=== PATIENT | female | born 1970 | race Caucasian/White ===

== ENCOUNTER 2017-12-02 05:41 | Day surgery (SDC) | payer MEDICAID ==
[2017-12-02] MEDS ORDERED: Dextrose 5%-Lactated Ringers 1,000 ML IV SCH (06:30)
[2017-12-02] MEDS ORDERED: Midazolam 1 MG/ML 2 ML SDV ONE (07:05)
[2017-12-02] MEDS ORDERED: fentaNYL 100 MCG/2 ML SDV ONE (07:05)
[2017-12-02] MEDS ORDERED: Propofol 200 MG/20 ML SDV ONE ×2 (07:05→07:59)
[2017-12-02 09:23] VITALS: BP 132/84
--- NOTE | 2017-12-09 09:12 | OR ---
DATE OF PROCEDURE: 12/02/2017 PREOPERATIVE DIAGNOSIS: Indications for screening colonoscopy (family history of colon carcinoma). POSTOPERATIVE DIAGNOSIS: Normal colonoscopic examination. OPERATIVE PROCEDURE: Flexible colonoscopy. ANESTHESIA: IV sedation. INDICATIONS FOR PROCEDURE: This is a 47-year-old presenting for a screening colonoscopy. She has a history of her mother having colon carcinoma. The plan is to proceed with flexible colonoscopy with biopsies and/or polypectomy as indicated. Potential risks including bleeding and perforation were discussed, and the patient wishes to proceed. DETAILS OF PROCEDURE: The patient was taken to the operating room and placed in a left lateral decubitus position. IV sedation was administered after which the initial digital rectal exam was performed and was unremarkable. The colonoscope was then passed into the rectum with retroflexion revealing uncomplicated hemorrhoidal columns. The scope was eventually passed to the level of the cecum. The prep was quite good with only a small amount of liquid stool present to that level. No abnormalities were noted. There were no diverticula. No areas of colitis and no polyps or other signs of neoplasia. The scope was withdrawn, the above findings reconfirmed, and the procedure concluded. The patient was taken to the recovery room in satisfactory condition. Recommendation would be to repeat the colonoscopy in 5 years given the history of her mother having a colon carcinoma. Mateus Adams MD /[id number]
== END 2017-12-02 09:15 | disposition home or self-care (01) ==
LOC: JP.SDS 05:41
PROVIDERS: ATTEND Surgery
DX: Z12.11 Encounter for screening for malignant neoplasm of colon (principal); E66.01 Morbid (severe) obesity due to excess calories; Z87.891 Personal history of nicotine dependence; Z80.0 Family history of malignant neoplasm of digestive organs; Z86.73 Personal history of transient ischemic attack (TIA), and cerebral infarction without residual deficits; Z79.82 Long term (current) use of aspirin
CPT/HCPCS: 45378; J2250; J2704; J3010; J7042

== ENCOUNTER 2018-04-10 06:54 | Day surgery (SDC) | payer MEDICAID ==
[2018-04-10] MEDS ORDERED: Glycopyrrolate 0.2 MG/ML 2 ML SDV IVPUSH ONE (07:30)
[2018-04-10] MEDS ORDERED: Dextrose 5%-Lactated Ringers 1,000 ML IV SCH (07:30)
[2018-04-10] MEDS ORDERED: Propofol 200 MG/20 ML SDV ONE (08:16)
[2018-04-10] MEDS ORDERED: fentaNYL 100 MCG/2 ML SDV ONE (08:16)
[2018-04-10] MEDS ORDERED: Midazolam 1 MG/ML 2 ML SDV ONE (08:17)
[2018-04-10 09:42] VITALS: BP 123/83
--- NOTE | 2018-04-14 07:58 | OR ---
DATE OF PROCEDURE: 04/10/2018 PREOPERATIVE DIAGNOSES: Probable recurrent gastroesophageal reflux disease. POSTOPERATIVE DIAGNOSES: 1. Recurrent hiatal hernia and active gastroesophageal reflux disease, status post previous Tamanna fundoplication. 2. Mild antral gastritis. OPERATIVE PROCEDURES: Esophagogastroduodenoscopy with: 1. Biopsies of esophagogastric junction for histologic evaluation. 2. Biopsies of antrum for CLOtest. ANESTHESIA: IV sedation. INDICATION FOR PROCEDURE: This is a 47-year-old presenting with recurrent gastroesophageal reflux disease that has been presently refractory to medical management, including over-the- counter proton pump inhibitors. She is status post previous Tamanna fundoplication. Plan is to proceed with upper GI endoscopy with biopsies as indicated. Potential risks including bleeding and perforation were discussed, and the patient wishes to proceed. DETAILS OF PROCEDURE: The patient was taken into the operating room and placed in a left lateral decubitus position. IV sedation was administered, after which the upper GI endoscope was passed orally through the length of the esophagus and into the stomach with retroflexion view of the fundus, thereafter through the pyloric channel and into the proximal duodenum. Findings included normal hypopharynx, larynx, and upper esophageal sphincter. The esophageal body was likewise unremarkable. There was some degree of hiatal hernia, as well as generalized loosening of the Tamanna fundoplication evident with some active gastroesophageal reflux disease present, consisting of some redness and friability of the distal esophageal mucosa. Within the stomach, retroflexion confirmed the laxity of the fundoplication, and the remainder of the stomach was unremarkable, other than for some mild patchy redness in the antrum. The pyloric channel and visualized portions of the duodenum were unremarkable. At this point, biopsies were obtained from the antrum and sent for CLOtest for H. pylori. Multiple biopsies were obtained from the esophagogastric junction and sent for histologic evaluation. No bleeding from the biopsy sites was seen, and the procedure was then concluded. The patient's recurrent symptoms have become quite marked and refractory to medical management. We will, therefore, proceed with a laparoscopy, laparotomy if necessary, and redo fundoplication. She is aware that there are times when taking down the fundoplication renders that area to be not satisfactory for a redo fundoplication, in which case we will do a proximal partial gastrectomy with Ramiro-en-Y reconstruction, which would result in displacement of the gastric secretion well bellow the esophagus. This will be scheduled for next Aruna. Potential risks were reviewed with the patient and the preoperative dietary counseling will be obtained postprocedure. Mateus Adams MD /[id number]
== END 2018-04-10 10:34 | disposition home or self-care (01) ==
LOC: JP.SDS 06:54
PROVIDERS: ATTEND Surgery
DX: K21.9 Gastro-esophageal reflux disease without esophagitis (principal); K29.70 Gastritis, unspecified, without bleeding; K44.9 Diaphragmatic hernia without obstruction or gangrene; Z98.890 Other specified postprocedural states
CPT/HCPCS: 36415; 43239; 80053; 82525; 82607; 82746; 83735; 84100; 84425; 84443; 84590; 84630; 85025; 86850; 86900; 86901; 87081; 88305; J2250; J2704; J3010; J3490; J7042

== ENCOUNTER 2018-05-07 07:15 | Inpatient (IN) | payer MEDICAID ==
[2018-05-07] MEDS ORDERED: cefOXitin 2 GM Vial ONE (07:22)
[2018-05-07] MEDS ORDERED: Propofol 200 MG/20 ML SDV ONE (09:12)
[2018-05-07] MEDS ORDERED: Glycopyrrolate 0.2 MG/ML 5 ML MDV ONE (09:12)
[2018-05-07] MEDS ORDERED: Neostigmine Methylsulfate 1 MG/ML 5 ML Syringe ONE (09:12)
[2018-05-07] MEDS ORDERED: Ondansetron 4 MG/2 ML SDV ONE (09:12)
[2018-05-07] MEDS ORDERED: Rocuronium 50 MG/5 ML Vial ONE ×2 (09:12→12:58)
[2018-05-07] MEDS ORDERED: Succinylcholine 200 MG/10 ML MDV ONE (09:12)
[2018-05-07] MEDS ORDERED: Dexamethasone 4 MG/ML SDV ONE (09:12)
[2018-05-07] MEDS ORDERED: Lactated Ringers 1,000 ML ONE ×2 (09:12→14:02)
[2018-05-07] MEDS ORDERED: Celecoxib 200 MG Cap PO ONE (09:30)
[2018-05-07] MEDS ORDERED: Dextrose 5%-Lactated Ringers 1,000 ML IV SCH (09:30)
[2018-05-07] MEDS ORDERED: Gabapentin 300 MG Cap PO ONE (09:30)
[2018-05-07] MEDS ORDERED: Scopolamine 1.5 MG Transdermal Patch TOP SCH (09:30)
[2018-05-07] MEDS ORDERED: Acetaminophen 500 MG Tab PO ONE (09:30)
[2018-05-07] MEDS ORDERED: Ketamine 500 MG/5 ML MDV IV SCH (10:45)
[2018-05-07] MEDS ORDERED: Lidocaine 2% 100 MG/5 ML Syringe IVPUSH SCH (10:45)
[2018-05-07] MEDS ORDERED: Ropivacaine 60 ML, Dexamethasone 8 MG, EPINEPHrine 0.4 MG, Sodium Chloride 0.9% 17.6 ML NERVRT SCH ×4 (10:45)
[2018-05-07] MEDS ORDERED: Ketamine 50 MG in Sodium Chloride 0.9% 49.5 ML IV SCH (10:45)
[2018-05-07] MEDS: cefOXitin 2 GM in Sodium Chloride 0.9% 50 ML IV ONE ×2 (11:34→16:04)
[2018-05-07 11:54] LABS: HEMOGLOBIN A1C 5.3 % (4.5-6.2)
[2018-05-07] MEDS ORDERED: fentaNYL 100 MCG/2 ML SDV ONE (14:53)
[2018-05-07] MEDS ORDERED: Insulin Lispro 100 Unit/ML 3 ML KwikPen SUBCUT ONE (15:15)
[2018-05-07] MEDS: Lidocaine 0.4%/D5W 2 GM/500 ML BAG IV SCH (16:05)
[2018-05-07] MEDS ORDERED: Insulin Lispro 100 Unit/ML 3 ML KwikPen SUBCUT PRN (16:21)
[2018-05-07] MEDS ORDERED: Labetalol 20 MG/4 ML Syringe IVPUSH PRN (16:21)
[2018-05-07] MEDS ORDERED: diphenhydrAMINE 50 MG/ML SDV IVPUSH PRN (16:21)
[2018-05-07] MEDS ORDERED: Ondansetron 4 MG/2 ML SDV IVPUSH PRN (16:21)
[2018-05-07] MEDS ORDERED: hydrOXYzine HCl 100 MG/2 ML SDV IM PRN (16:21)
[2018-05-07] MEDS ORDERED: Metoclopramide 10 MG/2 ML SDV IVPUSH PRN (16:21)
[2018-05-07] MEDS ORDERED: HYDROmorphone 0.5 MG/0.5 ML Syringe IVPUSH PRN (16:21)
[2018-05-07] MEDS: Dextrose 5%-Lactated Ringers 1,000 ML IV SCH (16:44)
[2018-05-07] MEDS: cefOXitin 2 GM in Sodium Chloride 0.9% 50 ML IV SCH ×2 (17:12→22:31)
[2018-05-07] MEDS: Pantoprazole 40 MG Vial IVPUSH SCH (17:18)
[2018-05-07] MEDS ORDERED: MVI, Adult with Vitamin K 10 ML, Thiamine 200 MG, Chromium/Copper/Mang/Selen/Zn 1 ML in... IV SCH ×4 (17:30)
[2018-05-07] MEDS: Acetaminophen Soln 650 MG/20.3 ML UD Cup PO SCH ×2 (18:04→23:09)
[2018-05-07] MEDS: Heparin Sodium 5,000 Units/ML Vial SUBCUT SCH (20:51)
[2018-05-07] MEDS: Gabapentin 250 MG/5 ML Solution ML 470 ML Bottle PO SCH (20:52)
[2018-05-08] MEDS ORDERED: Iohexol 647 MG/ML 50 ML SDV PO STA (03:14)
--- NOTE | 2018-05-08 04:38 | CRLCR ---
INDICATION: Ramiro-en-Y revision TECHNIQUE: Abdomen modified upper GI COMPARISON: None FINDINGS: Bowel: Oral contrast transit across the GE junction into the gastric pouch and into the distal jejunum without evidence of extravasation. Soft tissues: No sign of free air. No sign of soft tissue mass. No suspicious calcifications. Bones: Unremarkable for age. IMPRESSION: Transit of contrast into the distal jejunum. No evidence of extravasation. Dictated by Margarito Freedman MD @ May 08 2018 5:39AM Signed by Dr. Margarito Freedman @ May 08 2018 5:51AM
[2018-05-08] MEDS: cefOXitin 2 GM in Sodium Chloride 0.9% 50 ML IV SCH ×3 (05:07→17:19)
[2018-05-08] MEDS: Acetaminophen Soln 650 MG/20.3 ML UD Cup PO SCH ×3 (05:07→17:24)
[2018-05-08] MEDS: Dextrose 5%-Lactated Ringers 1,000 ML IV SCH (05:07)
[2018-05-08] MEDS: Heparin Sodium 5,000 Units/ML Vial SUBCUT SCH ×2 (08:08→20:00)
[2018-05-08] MEDS: Celecoxib 200 MG Cap PO SCH (08:09)
[2018-05-08] MEDS: Aspirin 81 MG Tab.Chew PO SCH (08:09)
[2018-05-08] MEDS: SCOPOLAMINE PATCH CHECK TOP SCH (08:10)
[2018-05-08] MEDS: Gabapentin 250 MG/5 ML Solution ML 470 ML Bottle PO SCH ×3 (08:13→20:03)
[2018-05-08] MEDS ORDERED: Ondansetron 4 MG Tab.DIS PO PRN (08:14)
[2018-05-08] MEDS ORDERED: Dextrose 5%-Lactated Ringers 1,000 ML IV SCH (08:15)
[2018-05-08] MEDS: Lidocaine 0.4%/D5W 2 GM/500 ML BAG IV SCH (11:04)
--- NOTE | 2018-05-08 11:43 | PN ---
DATE OF SERVICE: 05/08/2018 SUBJECTIVE: Augustina is postoperative day one. Her pain has been managed. Blood sugars were 235 and 173. Upper GI this morning was normal. Remainder of review of systems negative for any pertinent positives and negatives. Oral intake was 400. Urine output 2200. DEEPTI put out 95 mL of a light red drainage. OBJECTIVE: GENERAL: Augustina Duncan is a 47-year-old female. VITAL SIGNS: TPR is 98.1, 97, 18, blood pressure is 149/79. HEENT: Negative. NECK: Supple. HEART: Regular rate and rhythm. LUNGS: Clear. ABDOMEN: Dressings are dry and intact. Abdominal binder is on. DEEPTI drain intact. EXTREMITIES: Without peripheral edema. SKIN: Without rash. ASSESSMENT: Diagnostic laparoscopy with: 1. Proximal gastrectomy with Ramiro-en-Y gastrojejunostomy. 2. Repair of recurrent paraesophageal hernia with mesh. 3. Liver biopsy for recurrent gastroesophageal reflux disease with proximal stomach unsuitable for redo of Tamanna fundoplication, recurrent paraesophageal hernia and elevated liver function tests. Date of surgery, 05/07/2018. Surgeon, Mateus Adams MD. PLAN: 1. Decrease IV to 100 mL per hour. 2. Step 2 gastric bypass diet without cereal. 3. Zofran ODT 4 mg q.4 hours p.r.n. nausea. 4. Dressing off. 5. May shower. 6. Good pulmonary toilet. 7. Communication order written for the patient to have one med cup per 30 mL of water every 20 minutes or three per hour and record at bedside. The patient will be going home on a step 2 diet without cereal for 3 weeks. 8. We will evaluate p.r.n. or in a.m. Yesenia Sood PA-C /[id number]
[2018-05-08] MEDS: MVI, Adult with Vitamin K 10 ML, Thiamine 200 MG, Chromium/Copper/Mang/Selen/Zn 1 ML in... IV SCH ×4 (17:19)
[2018-05-08] MEDS: Pantoprazole 40 MG Vial IVPUSH SCH (17:24)
[2018-05-09] MEDS: Acetaminophen Soln 650 MG/20.3 ML UD Cup PO SCH ×5 (00:01→23:59)
[2018-05-09] MEDS: Aspirin 81 MG Tab.Chew PO SCH (08:09)
[2018-05-09] MEDS: Heparin Sodium 5,000 Units/ML Vial SUBCUT SCH ×2 (08:09→21:43)
[2018-05-09] MEDS: Celecoxib 200 MG Cap PO SCH (08:09)
[2018-05-09] MEDS: SCOPOLAMINE PATCH CHECK TOP SCH (08:10)
[2018-05-09] MEDS: Gabapentin 250 MG/5 ML Solution ML 470 ML Bottle PO SCH ×3 (08:15→21:43)
[2018-05-09] MEDS ORDERED: Cyanocobalamin (Vitamin B12) 1,000 MCG/ML SDV IM ONE (09:00)
[2018-05-09] MEDS ORDERED: Magnesium Hydroxide 400 MG/5 ML Susp 30 ML Cup PO PRN (09:09)
[2018-05-09] MEDS ORDERED: Magnesium Hydroxide 400 MG/5 ML Susp 30 ML Cup PO ONE (10:00)
[2018-05-09] MEDS ORDERED: Pantoprazole 40 MG Delayed-Release Granules 1 Packet PO SCH (16:00)
[2018-05-09] MEDS: MVI, Adult with Vitamin K 10 ML, Thiamine 200 MG, Chromium/Copper/Mang/Selen/Zn 1 ML in... IV SCH ×4 (16:40)
[2018-05-10] MEDS: Acetaminophen Soln 650 MG/20.3 ML UD Cup PO SCH (06:22)
--- NOTE | 2018-05-10 07:31 | PN ---
DATE OF SERVICE: 05/09/2018 The patient has been afebrile with stable vital signs. No major problems noted overnight. She does have a little bit of discomfort in the lower chest as one might expect, but was regarding it to okay. She was encouraged not to take anything solid due to the relatively difficult anastomosis at the esophagojejunostomy. Otherwise, we will maximize activity and work with pulmonary toilet. She may be okay for discharge home tomorrow if at that point she is able to be transported home due to the impending weather. Mateus Adams MD /[id number]
[2018-05-10 07:44] VITALS: BP 126/67
[2018-05-10] MEDS: Heparin Sodium 5,000 Units/ML Vial SUBCUT SCH (07:47)
[2018-05-10] MEDS: Celecoxib 200 MG Cap PO SCH (07:47)
[2018-05-10] MEDS: Aspirin 81 MG Tab.Chew PO SCH (08:44)
[2018-05-10] MEDS: Gabapentin 250 MG/5 ML Solution ML 470 ML Bottle PO SCH (08:44)
--- NOTE | 2018-05-11 14:02 | DISCH ---
FINAL DIAGNOSES: 1. Recurrent gastroesophageal reflux disease with proximal stomach and distal esophagus unsuitable for redo Tamanna fundoplication. 2. Recurrent paraesophageal diaphragmatic hernia. 3. Elevated liver function tests. 4. Transient elevation in blood sugars without diagnosis of type 2 diabetes mellitus. 5. Obesity with a BMI in excess of 40. OPERATIVE PROCEDURES: This was done on 05/07/2018, diagnostic laparoscopy with: 1. Esophagogastrectomy with Ramiro-en-Y esophagojejunostomy. 2. Repair of recurrent paraesophageal diaphragmatic hernia. 3. Narinder-Cut needle liver biopsy. SUMMARY: This is a 47-year-old presenting with gastroesophageal reflux disease that is refractory to medical management. At the time of diagnostic laparoscopy, on visualization and takedown of the previous Tamanna fundoplication, the distal esophagus and proximal stomach appeared to be unsuitable for redo Tamanna fundoplication due to intense scarring and areas of deserosalization after dissection. Given this, the backup procedure, that being esophagogastrectomy with esophagojejunostomy was undertaken with a Ramiro-en-Y type reconstruction, which should help alleviate the problems with the reflux. She also had a recurrent paraesophageal diaphragmatic hernia, which was repaired. She did have elevated liver function tests preoperatively, and given this, Narinder-Cut needle biopsies were obtained from the left lobe of the liver. Postoperatively, no major problems were noted. Her esophagojejunostomy was somewhat tenuous in terms of there being quite a bit of inflammation in that area, as well as the small bowel being somewhat thin-walled. Given this, we will keep her on a liquid diet for 3 weeks postoperatively, and she will be following up with Yesenia Sood at [facility] this coming , 05/14/2018. Medications on discharge will include continuation of the aspirin 81 mg a day, Tylenol 650 mg q.6 hours p.r.n. pain, and Celebrex 200 mg p.o. daily x3 weeks.
--- NOTE | 2018-05-13 15:30 | OR ---
DATE OF PROCEDURE: 05/07/2018 PREOPERATIVE DIAGNOSES: 1. Recurrent gastroesophageal reflux disease, status post previous Tamanna fundoplication. 2. Elevated liver function tests. POSTOPERATIVE DIAGNOSES: 1. Recurrent gastroesophageal reflux disease with proximal stomach and esophagogastric junction areas unsuitable for redo Tamanna fundoplication. 2. Recurrent paraesophageal diaphragmatic hernia. 3. Elevated liver function tests. OPERATIVE PROCEDURES: Diagnostic laparoscopy with lysis of adhesions: 1. Esophagogastrectomy with Ramiro-en-Y esophagojejunostomy (28956). 2. Repair of recurrent paraesophageal diaphragmatic hernia (73878). 3. Narinder-Cut needle liver biopsy (21270). ANESTHESIA: General. ASSISTANTS: Yesenia Sood PA-C; and BRENTON García. INDICATION FOR PROCEDURE: This is a 47-year-old presenting with symptomatic recurrent gastroesophageal reflux disease that has presently become refractory to medical management. She is status post previous Tamanna fundoplication. Recent endoscopy showed ongoing inflammation and loosening of the fundoplication, although it still is grossly present. The plan is to proceed with diagnostic laparoscopy and takedown of previous Tamanna fundoplication and proceed with a redo Tamanna fundoplication. She is aware that there are certain times wherein this situation results in the stomach and esophagogastric junction area not being suitable for Tamanna fundoplication, due to extensive scarring and deserosalization, and we would then proceed with a resectional procedure, either proximal gastrectomy or esophagogastrectomy with Ramiro-en-Y small bowel reconstruction, which would also satisfactorily control the reflux symptoms. She also has some chronically elevated liver function tests, and liver biopsies will be obtained to clarify the underlying pathology. Potential risks of the procedure including bleeding, infection, leaks from various GI tract closures, problems with bowel obstruction over time, as well as possibility of cardiopulmonary, septic, or hemorrhagic complications leading to were discussed, and the patient wishes to proceed. PROCEDURE DETAILS: The patient was taken to the operating room and placed in a supine position. After general endotracheal anesthesia was induced, she was converted to a lithotomy position. Diaz catheter was inserted, and the abdomen prepped and draped. At 15 cm inferior and 5 cm left of xiphoid process, transverse incision was made and the peritoneal cavity was entered under direct vision with an Optiview trocar and inflated to 15 mmHg pressure with CO2. Laparoscope was re-inserted. No underlying trocar insertion site injuries were seen. Following this, bilateral subcostal transversus abdominis plane blocks were placed under direct vision, and 5 additional trocars were placed across the upper and mid abdomen. Initially, the liver was examined and found to be quite enlarged and fatty infiltrated appearance. Narinder-Cut needle biopsy was obtained from the left lobe of the liver. Minimal bleeding from the biopsy sites was controlled with electrocautery. At this point, the liver was retracted upward, and the dissection around the previous fundoplication was undertaken, initially dividing the adhesions between the liver and the fundoplication. As the fundoplication was begun to be dissected downward, there was noted to be very intense scar formation, along with recurrence of paraesophageal diaphragmatic hernia. When the Tamanna fundoplication was largely taken down, it became evident that this area would not be suitable for redo Tamanna fundoplication, due to obvious decrease of blood supply and deserosalization. The esophagus itself was also involved in this process. Therefore, the proximal plane of resection was in the distal esophagus. The esophagus was encircled in a plane just above the esophagogastric junction, where the fundoplication was densely scarred, with pledgets around that area. Once this was encircled, this was divided with NAVEED black loads. The stomach below this plane was then resected with a combination of black and purple loads, and the esophagogastric resection specimen was subsequently delivered from the field. At this point, the patient was noted to have a paraesophageal diaphragmatic hernia present posteriorly. This contained some fundus of the stomach prolapsing posteriorly behind the portion of the esophagus. This surface area had been reduced during the course of the esophagogastric resection. This was then repaired posteriorly with 0 Ethibond sutures, reinforced with PTFE pledgets. Attention was then taken to the small bowel. The small bowel was identified at the ligament of Treitz and then traced down 100 cm distal to that point, where it was divided transversely with the same stapler. Small bowel was then traced out 150 cm further distal, where the wadi-tv-iltb enteroenterostomy was accomplished with internal firing of the Endo- NAVEED 60 mm stapler. Common opening was then closed transversely with the same stapler and angles anastomosed and mesenteric defect approximated with some 0 Ethibond stitch, along with fibrin sealant. The omentum at that point was then divided, and the Ramiro limb was then brought up to the divided esophagus with minimal tension. The anvil of a 25 mm EEA stapler was then connected to the [place] sump type tube and was brought down through the mouth and taken out through a small opening in the end of the esophagus. The divided end of the Ramiro limb was then opened and main body of EEA stapler passed several centimeters into the lumen of the small bowel, brought up the anvil and united with it, thus creating the esophagojejunostomy. Upon removal of the stapler, double donuts of mucosa were noted within it. The esophagojejunostomy was then reinforced with seromuscular stitches of 3-0 Vicryl stitch, along with fibrin sealant. Leak test was accomplished with injection of 120 mL of air in the gastric tube, which was placed down into the area of the anastomosis, and submerged in antibiotic-containing saline solution. No leaks were identified. A Martir- Velez drain was then placed through the left lateral trocar site and positioned adjacent to the esophagojejunostomy and from there up into the splenic fossa. The trocars were removed, peritoneal cavity deflated, incisions were closed with 4-0 Vicryl skin stitch, and dressing applied. The patient was taken to the recovery room in satisfactory condition. There were no evident complications. Physician assistant construction superintendent, Yesenia Sood, played an essential role in assisting in this case, helping to position the patient, retract structures as needed, as well as suturing and cutting sutures as indicated. Her presence improved patient safety and decreased operative time. Mateus Adams MD /[id number]
== END 2018-05-10 10:30 | disposition home or self-care (01) | DRG 327 ==
LOC: EDSTATUS 07:15 → JP.SDSSCHI 08:45 → JP.SDS 08:45 → JP.2SS 15:00
PROVIDERS: ADMIT Surgery; ATTEND Surgery
PROC: 0DB64ZZ Excision of Stomach, Percutaneous Endoscopic Approach (ICD-10-PCS; principal; 2018-05-07)
PROC: 0DQ44ZZ Repair Esophagogastric Junction, Percutaneous Endoscopic Approach (ICD-10-PCS; principal; 2018-05-07)
PROC: 0D1 Gastrointestinal System, Bypass (ICD-10-PCS; principal; 2018-05-07)
PROC: 0FB24ZX Excision of Left Lobe Liver, Percutaneous Endoscopic Approach, Diagnostic (ICD-10-PCS; principal; 2018-05-07)
PROC: 0BQT4ZZ Repair Diaphragm, Percutaneous Endoscopic Approach (ICD-10-PCS; principal; 2018-05-07)
PROC: 0DB34ZZ Excision of Lower Esophagus, Percutaneous Endoscopic Approach (ICD-10-PCS; principal; 2018-05-07)
DX: K21.9 Gastro-esophageal reflux disease without esophagitis (principal); Z68.41 Body mass index [BMI] 40.0-44.9, adult; G45.8 Other transient cerebral ischemic attacks and related syndromes; K44.9 Diaphragmatic hernia without obstruction or gangrene; R79.89 Other specified abnormal findings of blood chemistry; E66.9 Obesity, unspecified; R06.83 Snoring; K76.0 Fatty (change of) liver, not elsewhere classified; I34.0 Nonrheumatic mitral (valve) insufficiency; I36.1 Nonrheumatic tricuspid (valve) insufficiency; I37.1 Nonrheumatic pulmonary valve insufficiency; Z79.82 Long term (current) use of aspirin; Z88.8 Allergy status to other drugs, medicaments and biological substances; Z90.710 Acquired absence of both cervix and uterus; Z86.718 Personal history of other venous thrombosis and embolism; Z91.19 Patient's noncompliance with other medical treatment and regimen; Z87.891 Personal history of nicotine dependence; Z90.3 Acquired absence of stomach [part of]; Z98.890 Other specified postprocedural states; Z90.79 Acquired absence of other genital organ(s); Z90.722 Acquired absence of ovaries, bilateral
CPT/HCPCS: 36415; 74240; 80053; 82962; 83036; 83735; 84100; 85027; 86850; 86900; 86901; 88305; 88307; 88313; A9270-GY; C9113; J0171; J0330; J0694; J1100; J1170; J1644; J1815; J2001; J2405; J2704; J2710; J2795; J3010; J3411; J3420; J3490; J7042; J7050; J7120; Q9967

== ENCOUNTER 2018-06-10 12:59 | Outpatient (CLI) | payer MEDICAID ==
[2018-06-10] MEDS ORDERED: Lactated Ringers 1,000 ML IV ONE (13:15)
[2018-06-10] MEDS ORDERED: Ondansetron 4 MG/2 ML SDV IVPUSH ONE (13:15)
[2018-06-10 13:21] VITALS: BP 145/78; PULSE 75
[2018-06-10] MEDS ORDERED: MVI, Adult with Vitamin K 10 ML, Magnesium Sulfate 2 GM, Folic Acid 1 MG, Thiamine 100 ... IV ONE ×5 (14:00)
== END 2018-06-10 16:20 | disposition home or self-care (01) ==
LOC: JP.ACU 12:59
PROVIDERS: ATTEND Physician Assistant Medical
DX: E86.0 Dehydration (principal)
CPT/HCPCS: J3411; J3475; J7120; 96365; 96366; J3490

== ENCOUNTER 2018-06-12 07:41 | Day surgery (SDC) | payer MEDICAID ==
[2018-06-12] MEDS ORDERED: Lactated Ringers 1,000 ML IV SCH (08:15)
[2018-06-12] MEDS ORDERED: Propofol 200 MG/20 ML SDV ONE (08:19)
[2018-06-12] MEDS ORDERED: Midazolam 1 MG/ML 2 ML SDV ONE (08:20)
[2018-06-12] MEDS ORDERED: fentaNYL 100 MCG/2 ML SDV ONE (08:20)
[2018-06-12] MEDS ORDERED: Cyanocobalamin (Vitamin B12) 1,000 MCG/ML SDV IM ONE (08:30)
[2018-06-12] MEDS ORDERED: Glycopyrrolate 0.2 MG/ML 2 ML SDV IVPUSH ONE (09:00)
[2018-06-12] MEDS ORDERED: MVI, Adult with Vitamin K 10 ML, Thiamine 200 MG, Chromium/Copper/Mang/Selen/Zn 1 ML in... IV SCH ×4 (09:45)
[2018-06-12] MEDS ORDERED: HYDROmorphone 1 MG/ML Syringe IVPUSH ONE (10:10)
[2018-06-12] MEDS ORDERED: HYDROmorphone 1 MG/ML Syringe ONE (10:16)
[2018-06-12 12:31] VITALS: BP 125/79
--- NOTE | 2018-06-17 16:02 | OR ---
DATE OF PROCEDURE: 06/12/2018 PREOPERATIVE DIAGNOSIS: Stricture of esophagojejunostomy. POSTOPERATIVE DIAGNOSIS: Stricture of esophagojejunostomy. PROCEDURE: Upper GI endoscopy with dilation of esophagojejunostomy (94016). ANESTHESIA: IV sedation. INDICATIONS FOR PROCEDURE: This is a 47-year-old status post esophagogastrectomy as a salvage procedure for recurrent reflux disease following previous Tamanna fundoplication. She presents now with symptoms of stricturing at her esophagojejunostomy. Plan is to proceed with upper GI endoscopy with dilation as indicated. Potential risks including bleeding and perforation were discussed, and the patient wishes to proceed. DETAILS OF PROCEDURE: The patient was taken to the operating room, placed in a left lateral decubitus position. IV sedation was administered after which the upper GI endoscope was passed orally through the length of the esophagus and into the area of the esophagojejunostomy. No retained food or fluid was noted. The patient was noted to have a moderately tight stricture at that level. Using fluoroscopic surveillance, a 30-Serbian gastrointestinal catheter was then centered across the anastomosis and inflated and held in position for 1 minute, after which the balloon catheter was deflated and withdrawn. The scope could easily then be passed through the anastomosis. No complications were evident. The patient was taken to the recovery room in satisfactory condition. Mateus Adams MD /[id number]
== END 2018-06-12 13:15 | disposition home or self-care (01) ==
LOC: JP.SDS 07:41
PROVIDERS: ATTEND Surgery
DX: K95.89 Other complications of other bariatric procedure (principal); E66.01 Morbid (severe) obesity due to excess calories; Z68.36 Body mass index [BMI] 36.0-36.9, adult
CPT/HCPCS: J1170; J2250; J2704; J3010; J3420; J3490; J7120

== ENCOUNTER 2018-06-25 08:57 | Day surgery (SDC) | payer MEDICAID ==
[2018-06-25] MEDS ORDERED: Lidocaine 1% 2 ML ONE ×2 (09:31)
[2018-06-25] MEDS ORDERED: Cyanocobalamin (Vitamin B12) 1,000 MCG/ML SDV IM ONE (09:42)
[2018-06-25] MEDS ORDERED: Lactated Ringers 1,000 ML IV ONE ×2 (09:43→09:46)
[2018-06-25] MEDS ORDERED: Propofol 200 MG/20 ML SDV ONE (09:56)
[2018-06-25] MEDS ORDERED: Midazolam 1 MG/ML 2 ML SDV ONE (09:57)
[2018-06-25] MEDS ORDERED: fentaNYL 100 MCG/2 ML SDV ONE (09:57)
[2018-06-25] MEDS ORDERED: MVI, Adult with Vitamin K 10 ML, Thiamine 200 MG, Chromium/Copper/Mang/Selen/Zn 1 ML in... IV ONE ×4 (10:30)
[2018-06-25] MEDS ORDERED: Glycopyrrolate 0.2 MG/ML 2 ML SDV IVPUSH ONE (11:30)
[2018-06-25] MEDS ORDERED: Lactated Ringers 1,000 ML IV SCH (11:30)
[2018-06-25] MEDS ORDERED: Dexamethasone 4 MG/ML SDV ONE (15:24)
[2018-06-25] MEDS ORDERED: Pantoprazole 40 MG Vial IVPUSH ONE (15:30)
[2018-06-25] MEDS ORDERED: HYDROmorphone 1 MG/ML Syringe IVPUSH ONE (16:02)
[2018-06-25 16:36] VITALS: BP 105/64
--- NOTE | 2018-06-30 10:37 | OR ---
DATE OF PROCEDURE: 06/25/2018 SURGEON: Mateus Adams MD PREOPERATIVE DIAGNOSIS: Stricture at esophagojejunostomy. POSTOPERATIVE DIAGNOSIS: Stricture and ulceration at esophagojejunostomy. OPERATIVE PROCEDURE: Upper GI endoscopy with dilation of esophagojejunostomy (01639). ANESTHESIA: IV sedation. INDICATION FOR PROCEDURE: This is a 47-year-old status post esophagogastrectomy for recurrent reflux disease. Following previous Tamanna fundoplication on 05/07/2018, she presents now with some recurrent stricturing at esophagojejunostomy. Plan is to proceed with upper GI endoscopy with dilation as indicated. Potential risks including bleeding and perforation were discussed, and the patient wishes to proceed. DETAILS OF PROCEDURE: The patient was taken to the operating room, placed in a left lateral decubitus position. IV sedation was administered, after which the upper GI endoscope was passed orally through the esophagus and into the area of the esophagojejunostomy. Moderate stricture was present. At this point, the scope was not quite being able to be pass across the anastomosis. There was also noted to be some ulceration within the area of the anastomosis covered with fibrinous exudate. Using fluoroscopic surveillance, Bard gastrointestinal balloon catheter was centered across the anastomosis and inflated to 30- German size. This was held in position for one minute, after which the balloon catheter was deflated and withdrawn. The scope was easily passed through the anastomosis. No complications were noted, and the patient tolerated the procedure well. For the ulceration, the patient will be started on Protonix 40 mg daily. We will have her follow up with Yesenia Sood in roughly 3 weeks. She is instructed to call with recurrence at symptoms. Mateus Adams MD /[id number]
== END 2018-06-25 16:59 | disposition home or self-care (01) ==
LOC: JP.SDS 08:57
PROVIDERS: ATTEND Surgery
DX: K28.9 Gastrojejunal ulcer, unspecified as acute or chronic, without hemorrhage or perforation (principal); K22.2 Esophageal obstruction; Z86.73 Personal history of transient ischemic attack (TIA), and cerebral infarction without residual deficits
CPT/HCPCS: C9113; J1100; J1170; J2001; J2250; J2704; J3010; J3411; J3420; J3490; J7120

== ENCOUNTER 2018-07-14 08:01 | Day surgery (SDC) | payer MEDICAID ==
[2018-07-14] MEDS ORDERED: Midazolam 1 MG/ML 2 ML SDV ONE (08:29)
[2018-07-14] MEDS ORDERED: fentaNYL 100 MCG/2 ML SDV ONE (08:29)
[2018-07-14] MEDS ORDERED: Propofol 200 MG/20 ML SDV ONE (08:29)
[2018-07-14] MEDS ORDERED: Lactated Ringers 1,000 ML IV ONE (08:30)
[2018-07-14] MEDS ORDERED: Cyanocobalamin (Vitamin B12) 1,000 MCG/ML SDV IM ONE (08:30)
[2018-07-14] MEDS ORDERED: Glycopyrrolate 0.2 MG/ML 2 ML SDV IVPUSH ONE (08:30)
[2018-07-14] MEDS ORDERED: Ondansetron 4 MG/2 ML SDV ONE ×2 (08:31→10:33)
[2018-07-14] MEDS ORDERED: MVI, Adult with Vitamin K 10 ML, Thiamine 200 MG, Chromium/Copper/Mang/Selen/Zn 1 ML in... IV ONE ×4 (09:30)
[2018-07-14 11:50] VITALS: BP 100/54
--- NOTE | 2018-07-18 07:17 | OR ---
DATE OF PROCEDURE: 07/14/2018 PREOPERATIVE DIAGNOSIS: Probable stricture at esophagojejunostomy. POSTOPERATIVE DIAGNOSIS: Moderately stricture at esophagojejunostomy. OPERATIVE PROCEDURE: Upper GI endoscopy with dilation of esophagojejunostomy (83530). ANESTHESIA: IV sedation. INDICATIONS FOR PROCEDURE: The patient presents once again with symptoms suggestive of stricturing at esophagojejunostomy. Plan is to proceed with an upper GI endoscopy with dilation as indicated. Potential risks including bleeding and perforation were discussed, and the patient wishes to proceed. DETAILS OF PROCEDURE: The patient was taken to the operating room and placed in a left lateral decubitus position. IV sedation was administered, after which the upper GI endoscope was passed orally through the length of the esophagus and into the area of the esophagojejunostomy. No retained food or fluid was noted. The patient was noted to have moderate degree of stricturing of that anastomosis. At this point, there was less in the way of inflammation that had been previously seen with the area of ulceration seen earlier now healed. A Bard gastrointestinal catheter was centered across the anastomosis and inflated to 30-Azeri size. This was held in position for 1 minute, after which balloon catheter was deflated and withdrawn. Scope was then easily passed through the anastomosis. No complications were noted. Procedure was concluded with withdrawal of scope. The patient was taken to the recovery room in satisfactory condition. Mateus Adams MD /[id number]
== END 2018-07-14 11:55 | disposition home or self-care (01) ==
LOC: JP.SDS 08:01
PROVIDERS: ATTEND Surgery
DX: K95.89 Other complications of other bariatric procedure (principal); Z86.718 Personal history of other venous thrombosis and embolism
CPT/HCPCS: 43249; J2250; J2405; J2704; J3010; J3411; J3420; J3490; J7120

== ENCOUNTER 2018-07-31 07:21 | Day surgery (SDC) | payer MEDICAID ==
[2018-07-31] MEDS ORDERED: Midazolam 1 MG/ML 2 ML SDV ONE (07:48)
[2018-07-31] MEDS ORDERED: fentaNYL 100 MCG/2 ML SDV ONE (07:48)
[2018-07-31] MEDS ORDERED: Propofol 200 MG/20 ML SDV ONE (07:48)
[2018-07-31] MEDS ORDERED: Cyanocobalamin (Vitamin B12) 1,000 MCG/ML SDV IM ONE ×2 (08:00→09:00)
[2018-07-31] MEDS ORDERED: Glycopyrrolate 0.2 MG/ML 2 ML SDV IVPUSH ONE ×2 (08:00→09:00)
[2018-07-31] MEDS ORDERED: Lactated Ringers 1,000 ML IV ONE ×2 (08:00)
[2018-07-31] MEDS ORDERED: MVI, Adult with Vitamin K 10 ML, Thiamine 200 MG, Chromium/Copper/Mang/Selen/Zn 1 ML in... IV ONE ×8 (09:00→09:30)
[2018-07-31] MEDS ORDERED: Dexamethasone 4 MG/ML SDV ONE (09:10)
[2018-07-31] MEDS ORDERED: Ondansetron 4 MG/2 ML SDV ONE (09:10)
[2018-07-31 10:20] VITALS: BP 106/69
[2018-07-31] MEDS ORDERED: Lidocaine 2% 60 ML, Alum Hydrox/Mag Hydrox/Simeth 360 ML PO PRN ×2 (10:49)
--- NOTE | 2018-08-03 14:19 | OR ---
DATE OF PROCEDURE: 07/31/2018 PREOPERATIVE DIAGNOSIS: Probable stricture, esophagojejunostomy. POSTOPERATIVE DIAGNOSES: 1. Stricture, esophagojejunostomy. 2. Foreign body (retained food) at esophagojejunostomy. PROCEDURE PERFORMED: Upper gastrointestinal endoscopy with: 1. Dilation of esophagojejunostomy (12912). 2. Removal of foreign body located at esophagojejunostomy (49667). ANESTHESIA: IV sedation. FORESTRY TREE PRUNER: Ko Cooley MS-3. INDICATION FOR PROCEDURE: The patient is status post esophagogastrectomy as a rescue procedure for gastroesophageal reflux disease. She has been having some recurrent strictures. The plan is to proceed with an upper GI endoscopy with dilation at this time as she is presenting with some recurrent symptoms of stricturing. Potential risks including bleeding and perforation were discussed, and the patient wishes to proceed. DETAILS OF PROCEDURE: The patient was taken to the operating room and placed in the left lateral decubitus position. IV sedation was administered, after which the upper GI endoscope was passed orally through the length of the esophagus and into the area of the esophagogastric anastomosis. At this level, there was some retained food which could be acting somewhat as a there was a moderate degree of stricturing with some granulation tissue noted at the anastomosis as well. Initially, a Bard gastrointestinal balloon catheter was then centered across the anastomosis and inflated to 36-Irish. This was held in position for one minute, after which the balloon and catheter were deflated and withdrawn. Good dilation was confirmed without evident complications. The retained food was still present above this. It appeared to be probably somewhat larger than the current anastomotic lumen. Given this, it was subsequently retrieved with an endoscopic basket and removed along with the gastroscope. At the conclusion of the procedure, there were no evident complications. The patient received some Decadron prior to the initiation of the procedure today, and we will give her a Medrol Dosepak starting tomorrow and see if some course of steroids may be helpful with regard to delaying the recurrence of the stricturing. Otherwise, the patient had been complaining of some burning postoperatively and was given a bottle of 2 ounces of Maalox with 12 ounces of Mylanta, could be taken p.r.n. for that symptom. Otherwise, she will be following with Yesenia Sood in approximately 2 weeks. Mateus Adams MD /[id number]
== END 2018-07-31 11:13 | disposition home or self-care (01) ==
LOC: JP.SDS 07:21
PROVIDERS: ATTEND Surgery
DX: K91.89 Other postprocedural complications and disorders of digestive system (principal); T18.128A Food in esophagus causing other injury, initial encounter; Z88.8 Allergy status to other drugs, medicaments and biological substances
CPT/HCPCS: 43233; 43247; A9270; J1100; J2250; J2405; J2704; J3010; J3411; J3420; J3490; J7120

== ENCOUNTER 2018-08-25 05:26 | Day surgery (SDC) | payer MEDICAID ==
[2018-08-25] MEDS ORDERED: Lactated Ringers 1,000 ML IV ONE (06:00)
[2018-08-25] MEDS ORDERED: MVI, Adult with Vitamin K 10 ML, Thiamine 200 MG, Chromium/Copper/Mang/Selen/Zn 1 ML in... IV ONE ×4 (06:00)
[2018-08-25] MEDS ORDERED: Cyanocobalamin (Vitamin B12) 1,000 MCG/ML SDV IM ONE (06:00)
[2018-08-25] MEDS ORDERED: Glycopyrrolate 0.2 MG/ML 2 ML SDV IVPUSH ONE (06:00)
[2018-08-25] MEDS ORDERED: fentaNYL 100 MCG/2 ML SDV ONE (06:48)
[2018-08-25] MEDS ORDERED: Propofol 200 MG/20 ML SDV ONE (06:48)
[2018-08-25] MEDS ORDERED: Midazolam 1 MG/ML 2 ML SDV ONE (06:48)
[2018-08-25 09:17] VITALS: BP 117/69
--- NOTE | 2018-08-25 13:25 | OR ---
DATE OF PROCEDURE: 08/25/2018 PREOPERATIVE DIAGNOSIS: Probable stricture at the esophagojejunostomy. POSTOPERATIVE DIAGNOSIS: Moderate stricture at the esophagojejunostomy. OPERATIVE PROCEDURE: Upper gastrointestinal endoscopy with dilation of esophagojejunostomy (52570). ANESTHESIA: IV sedation. INDICATION FOR PROCEDURE: This is a 48-year-old, presenting with some recurrent stricturing at the esophagojejunostomy. Plan is to do upper GI endoscopy with dilation as indicated. Potential risks including bleeding and perforation were discussed, and the patient wishes to proceed. DETAILS OF PROCEDURE: The patient was taken to the operating room and placed in a left lateral decubitus position. IV sedation was administered, after which the upper GI endoscope was passed orally through the length of the esophagus and to the level of the esophagojejunostomy. This was 1 cm scope almost being able to be passed through the area. Initially, there was area of granulation tissue which seems to be quite reddened and friable, now regained mucosal surface on it. There was still slight bump there, but overall amount of inflammation here appeared to be quite a bit less. Bard gastrointestinal catheter was then centered across the anastomosis and inflated to 36-[place] Islander size, stage 2. This was held in position for 1 minute, after which the balloon catheter was deflated and withdrawn. The scope was then easily passed through the anastomosis. No complications were noted. The patient was taken to the recovery room in satisfactory condition. Mateus Adams MD /[id number]
== END 2018-08-25 09:19 | disposition home or self-care (01) ==
LOC: JP.SDS 05:26
PROVIDERS: ATTEND Surgery
DX: K95.89 Other complications of other bariatric procedure (principal); K21.9 Gastro-esophageal reflux disease without esophagitis; K90.9 Intestinal malabsorption, unspecified; E66.01 Morbid (severe) obesity due to excess calories; Z86.73 Personal history of transient ischemic attack (TIA), and cerebral infarction without residual deficits
CPT/HCPCS: J2250; J2704; J3010; J3411; J3420; J3490; J7120

== ENCOUNTER 2018-11-17 08:36 | Day surgery (SDC) | payer MEDICAID ==
[2018-11-17] MEDS ORDERED: Propofol 200 MG/20 ML SDV ONE (09:02)
[2018-11-17] MEDS ORDERED: fentaNYL 100 MCG/2 ML SDV ONE (09:02)
[2018-11-17] MEDS ORDERED: Midazolam 1 MG/ML 2 ML SDV ONE (09:03)
[2018-11-17] MEDS ORDERED: Lactated Ringers 1,000 ML IV SCH (09:45)
[2018-11-17] MEDS ORDERED: Cyanocobalamin (Vitamin B12) 1,000 MCG/ML SDV IM ONE (10:00)
[2018-11-17] MEDS ORDERED: Glycopyrrolate 0.2 MG/ML 2 ML SDV IVPUSH ONE (10:00)
[2018-11-17] MEDS ORDERED: MVI, Adult with Vitamin K 10 ML, Thiamine 200 MG, Chromium/Copper/Mang/Selen/Zn 1 ML in... IV ONE ×4 (10:30)
[2018-11-17] MEDS ORDERED: Ondansetron 4 MG/2 ML SDV ONE (11:20)
[2018-11-17] MEDS ORDERED: Dexamethasone 4 MG/ML SDV ONE (11:20)
[2018-11-17 12:22] VITALS: BP 101/51; PULSE 52
--- NOTE | 2018-11-20 01:28 | OR ---
DATE OF PROCEDURE: 11/17/2018 SURGEON: Mateus Adams MD PREOPERATIVE DIAGNOSIS: Probable stricture at gastrojejunostomy. POSTOPERATIVE DIAGNOSIS: Mild stricture at gastrojejunostomy. OPERATIVE PROCEDURE: Upper gastrointestinal endoscopy with dilation of gastrojejunostomy (91634). ANESTHESIA: IV sedation. INDICATION FOR PROCEDURE: This is a 48-year-old status post partial gastrectomy for reflux disease with Ramiro-en-Y gastrojejunostomy. She has had some persistent problems with stricturing. The most recent stricture dilation was in latter part of August, so these have become more infrequent. She plans to proceed with upper GI endoscopy with dilation as indicated. Potential risks including bleeding and perforation were discussed and the patient wishes to proceed. DETAILS OF PROCEDURE: The patient was taken to the operating room and placed in a left lateral decubitus position. IV sedation was administered, after which the upper GI endoscope was passed orally through the length of the esophagus and into the area of the gastrojejunostomy. The patient had only mild stricture at this point with the scope not quite being able to be passed across the anastomosis. There was minimal inflammation of mucosa involvement at this point as well. Bard gastrointestinal catheter was then centered across the anastomosis and inflated to 36-G[place] size, stage II. This was held in position for 1 minute, after which balloon catheter was deflated and withdrawn. Scope easily passed through the anastomosis. No complications were noted. The patient was taken to the recovery room in satisfactory condition. Mateus Adams MD /[id number]
== END 2018-11-17 12:54 | disposition home or self-care (01) ==
LOC: JP.SDS 08:36
PROVIDERS: ATTEND Surgery
DX: K91.89 Other postprocedural complications and disorders of digestive system (principal); Z98.0 Intestinal bypass and anastomosis status
CPT/HCPCS: 43245; J1100; J2250; J2405; J2704; J3010; J3411; J3420; J3490; J7120

== ENCOUNTER 2019-01-11 06:22 | Day surgery (SDC) | payer MEDICAID ==
[2019-01-11] MEDS ORDERED: Glycopyrrolate 0.2 MG/ML 2 ML SDV IVPUSH ONE (07:00)
[2019-01-11] MEDS ORDERED: Lactated Ringers 1,000 ML IV SCH (07:00)
[2019-01-11] MEDS ORDERED: Cyanocobalamin (Vitamin B12) 1,000 MCG/ML SDV IM ONE (07:00)
[2019-01-11] MEDS ORDERED: Propofol 200 MG/20 ML SDV ONE (07:23)
[2019-01-11] MEDS ORDERED: Midazolam 1 MG/ML 2 ML SDV ONE (07:23)
[2019-01-11] MEDS ORDERED: fentaNYL 100 MCG/2 ML SDV ONE (07:23)
[2019-01-11] MEDS ORDERED: Ondansetron 4 MG/2 ML SDV ONE (07:39)
[2019-01-11] MEDS ORDERED: Dexamethasone 4 MG/ML SDV ONE (07:39)
[2019-01-11] MEDS ORDERED: MVI, Adult with Vitamin K 10 ML, Thiamine 200 MG, Chromium/Copper/Mang/Selen/Zn 1 ML in... IV ONE ×4 (08:00)
--- NOTE | 2019-01-11 10:24 | OR ---
DATE OF PROCEDURE: 01/11/2019 SURGEON: Mateus Adams MD PREOPERATIVE DIAGNOSIS: Probable stricture at esophagojejunostomy. POSTOPERATIVE DIAGNOSIS: Mild stricture at esophagojejunostomy. OPERATIVE PROCEDURE: Upper GI endoscopy with dilation of esophagojejunostomy. ANESTHESIA: IV sedation. INDICATIONS FOR PROCEDURE: The patient is several months status post an esophagogastrectomy for recurrent reflux disease, and she has had some stricturing at her esophagojejunostomy and presents now with symptoms of this getting somewhat tighter again. The plan is to proceed with upper GI endoscopy with dilation as indicated. Potential risks were reviewed once again including bleeding and perforation, and the patient wishes to proceed. DETAILS OF PROCEDURE: The patient was taken to the operating room and placed in left lateral decubitus position. IV sedation was administered, after which the upper GI endoscope was passed orally through the length of the esophagus, into the level of esophagojejunal anastomosis. This was slightly narrowed with the 1 cm scope not quite being able to be passed through the anastomosis. A Bard gastrointestinal balloon catheter was then inflated to 36-[place]bourgish size. This was withdrawn and this was noted to have done little in the way of dilation. Given this, a 45-Lux[place]ish balloon was then centered across the anastomosis and inflated to stage I. At that point, upon deflation of the balloon, there was some visible dilation present. Scope could easily pass through the anastomosis. No complications were evident. The patient was taken to the recovery room in satisfactory condition. Mateus Adams MD /[id number]
[2019-01-11 10:30] VITALS: BP 97/60; PULSE 51
== END 2019-01-11 10:39 | disposition home or self-care (01) ==
LOC: JP.SDS 06:22
PROVIDERS: ATTEND Surgery
DX: K91.89 Other postprocedural complications and disorders of digestive system (principal); Z86.73 Personal history of transient ischemic attack (TIA), and cerebral infarction without residual deficits
CPT/HCPCS: 43233; J1100; J2250; J2405; J2704; J3010; J3411; J3420; J3490; J7120

== ENCOUNTER → 2019-05-20 | Day surgery (SDC) | payer MEDICAID ==
[~2019-05-20] MED LIST: Cyanocobalamin (Vitamin B12) 1,000 MCG/ML SDV IM ONE; Dexamethasone 4 MG/ML SDV ONE; Glycopyrrolate 0.2 MG/ML 2 ML SDV IVPUSH ONE; HYDROmorphone 1 MG/ML Syringe IV ONE; HYDROmorphone 1 MG/ML Syringe ONE; Lactated Ringers 1,000 ML IV ONE; Lidocaine 2% 60 ML, Alum Hydrox/Mag Hydrox/Simeth 360 ML PO PRN; MVI, Adult with Vitamin K 10 ML, Thiamine 200 MG, Chromium/Copper/Mang/Selen/Zn 1 ML in... IV ONE; Midazolam 1 MG/ML 2 ML SDV ONE; Propofol 200 MG/20 ML SDV ONE; fentaNYL 100 MCG/2 ML SDV ONE
[2019-05-20 13:08] VITALS: BP 102/61; PULSE 63
--- NOTE | 2019-05-24 11:00 | OR ---
DATE OF PROCEDURE: 05/20/2019 SURGEON: Mateus Adams MD PREOPERATIVE DIAGNOSIS: Postprandial epigastric and abdominal pain. POSTOPERATIVE DIAGNOSES: 1. Mild stricture at the gastrojejunostomy. 2. Bowel and pouch in Ramiro limb, suggestive of partial small-bowel obstruction. PROCEDURE PERFORMED: Upper GI endoscopy with dilation and gastrojejunostomy (52720). ANESTHESIA: IV sedation. INDICATION FOR PROCEDURE: The patient is status post a partial gastrectomy with Ramiro-en-Y gastrojejunostomy and presents with some recurrent symptoms such as possible stricturing versus possible partial small bowel obstruction. The plan is to proceed with upper GI endoscopy with dilation as indicated. Potential risks including bleeding and perforation were discussed, and the patient wishes to proceed. DETAILS OF PROCEDURE: The patient was taken to the operating room and placed in a left lateral decubitus position. IV sedation was administered, after which the upper GI endoscope was passed orally through the length of the esophagus into the gastric pouch and from there through the gastrojejunostomy and roughly 20 cm into the Ramiro limb. Findings included normal esophagus and gastric pouch. The gastrojejunostomy was perhaps slightly narrowed, but easily allowed the scope to be passed through the area. The most striking finding was quite a bit of bile within the Ramiro limb. It was creeping up into the gastric pouch, suggestive of possible more distal small-bowel obstruction. The Bard gastrointestinal catheter was centered across the gastrojejunostomy and inflated to 45- [place] size. This was held in position for 1 minute after which the balloon was deflated, and the patient had some evident dilation of the gastrojejunostomy. No complications were noted. Procedure was then concluded. Given the findings, we will plan to proceed with a CAT scan of the abdomen and pelvis tomorrow, and we will see the patient after that to determine if there is something more that needs to be done operatively for what was likely a partial small-bowel obstruction. Mateus Adams MD /[id number]
== END ==
LOC: JP.SDS 08:41
PROVIDERS: ATTEND Surgery
DX: K94.23 Gastrostomy malfunction (principal); E66.9 Obesity, unspecified; Z90.49 Acquired absence of other specified parts of digestive tract; Z98.84 Bariatric surgery status; Z68.26 Body mass index [BMI] 26.0-26.9, adult
CPT/HCPCS: A9270-GY; J1100; J1170; J2250; J2704; J3010; J3411; J3420; J3490; J7120

== ENCOUNTER 2019-05-24 07:45 | Inpatient (IN) | payer MEDICAID ==
[~2019-05-24 07:45] MED LIST changes: +Bupivacaine 0.5% 50 ML MDV ONE; -Cyanocobalamin (Vitamin B12) 1,000 MCG/ML SDV IM ONE; -Dexamethasone 4 MG/ML SDV ONE; -Glycopyrrolate 0.2 MG/ML 2 ML SDV IVPUSH ONE; -HYDROmorphone 1 MG/ML Syringe IV ONE; -HYDROmorphone 1 MG/ML Syringe ONE; -Lactated Ringers 1,000 ML IV ONE; +Lidocaine 1% with EPINEPHrine 1:100,000 50 ML MDV ONE; -Lidocaine 2% 60 ML, Alum Hydrox/Mag Hydrox/Simeth 360 ML PO PRN; -MVI, Adult with Vitamin K 10 ML, Thiamine 200 MG, Chromium/Copper/Mang/Selen/Zn 1 ML in... IV ONE; +Meropenem 500 MG SDV ONE; -Midazolam 1 MG/ML 2 ML SDV ONE; -Propofol 200 MG/20 ML SDV ONE; -fentaNYL 100 MCG/2 ML SDV ONE
[2019-05-24] MEDS ORDERED: Scopolamine 1.5 MG Transdermal Patch TOP SCH (08:00)
[2019-05-24] MEDS ORDERED: Acetaminophen 500 MG Tab PO ONE (08:00)
[2019-05-24] MEDS ORDERED: Propofol 200 MG/20 ML SDV ONE (08:08)
[2019-05-24] MEDS ORDERED: Dexamethasone 4 MG/ML SDV ONE (08:08)
[2019-05-24] MEDS ORDERED: Succinylcholine 200 MG/10 ML MDV ONE (08:08)
[2019-05-24] MEDS ORDERED: fentaNYL 250 MCG/5 ML SDV ONE ×2 (08:08→11:18)
[2019-05-24] MEDS ORDERED: Glycopyrrolate 0.2 MG/ML 5 ML MDV ONE (08:08)
[2019-05-24] MEDS ORDERED: Neostigmine Methylsulfate 1 MG/ML 5 ML Syringe ONE (08:08)
[2019-05-24] MEDS ORDERED: Ondansetron 4 MG/2 ML SDV ONE (08:08)
[2019-05-24] MEDS ORDERED: Rocuronium 50 MG/5 ML Vial ONE (08:08)
[2019-05-24] MEDS ORDERED: Dextrose 5%-Lactated Ringers 1,000 ML IV SCH (08:15)
[2019-05-24] MEDS ORDERED: cefOXitin 2 GM in Sodium Chloride 0.9% 50 ML IV ONE (09:15)
[2019-05-24] MEDS ORDERED: Ketamine 500 MG/5 ML MDV IV SCH (09:30)
[2019-05-24] MEDS ORDERED: Ketamine 50 MG in Sodium Chloride 0.9% 49.5 ML IV SCH (09:30)
--- NOTE | 2019-05-24 09:36 | PCM.HP.2 ---
H&P History of Present Illness - General Date of Service: 05/24/19 Source of Information: Patient History Limitations: Reports: No Limitations - History of Present Illness Initial Comments - Free Text/Narative: Abdominal pain associated with dysphagia, heartburn, nausea and vomiting. Onset 2 weeks ago with pain and symptoms increasing. Duration of Symptoms: Reports: Week(s): (2) Location: Reports: Abdomen (mid epigastric - radiates to left upper quadrant. ) Quality: Reports: Ache, Dull, Pressure Severity: Moderate Improves with: Reports: None Worsens with: Reports: Eating Associated Symptoms: Reports: Nausea/Vomiting, Other ([place]) - Related Data Allergies/Adverse Reactions: Allergies Allergy/AdvReac Type Severity Reaction Status Date / Time brompheniramine Allergy Rash Verified 01/11/19 06:46 phenylephrine Allergy Rash Verified 01/11/19 06:46 Home Medications: Home Meds Aspirin 325 mg PO DAILY 09/04/15 [History] Cyanocobalamin (Vitamin B-12) [Vitamin B-12] 1,000 mcg SL DAILY 06/12/18 [ History] B-Complex with Vitamin C [B-Complex with C] 1 each PO DAILY 11/16/18 [History] Calcium Citrate/Vitamin D3 [Calcium Citrate + D] 1 each PO BID 11/16/18 [History ] Multivitamin with Minerals [Multiple Vitamin] 1 tab PO BID 11/17/18 [History] Famotidine [Pepcid] 20 mg PO BID 01/07/19 [History] Viscous Lidocaine 30 ml PO ASDIRECTED PRN 05/24/19 [History] Past Medical History HEENT History: Reports: Impaired Vision Other HEENT History: wears glasses Cardiovascular History: Reports: Other (See Below) Other Cardiovascular History: PFO Respiratory History: Reports: None Gastrointestinal History: Reports: Colon Polyp, GERD, Hiatal Hernia Genitourinary History: Reports: None PROCTOLOGIST History: Reports: Musculoskeletal History: Reports: Arthritis Other Musculoskeletal History: R elbow pain Neurological History: Reports: CVA, Migraines, TIA Psychiatric History: Reports: None Endocrine/Metabolic History: Reports: Obesity/BMI 30+ Hematologic History: Reports: B12 Deficiency, Blood Transfusion(s) Immunologic History: Reports: None Oncologic (Cancer) History: Reports: None Dermatologic History: Reports: None - Infectious Disease History Infectious Disease History: Reports: Herpes - Past Surgical History HEENT Surgical History: Reports: None Cardiovascular Surgical History: Reports: Other (See Below) Other Cardiovascular Surgeries/Procedures: cribaform placed 2009. Respiratory Surgical History: Reports: None GI Surgical History: Reports: Bariatric Procedure, Cholecystectomy, Colonoscopy , EGD Other GI Surgeries/Procedures: MAY 07, 2018 [facility] Female Surgical History: Reports: Breast Biopsy, D&C, Hysterectomy, Oophorectomy Neurological Surgical History: Reports: None Musculoskeletal Surgical History: Reports: None Oncologic Surgical History: Reports: Biopsy of Breast Dermatological Surgical History: Reports: None Social & Family History - Family History Family Medical History: Noncontributory Cardiac: Reports: Heart Failure Musculoskeletal: Reports: Arthritis Neurological: Reports: Alzheimers Disease Endocrine/Metabolic: Reports: Diabetes, Type I Oncologic: Reports: Breast, Colon - Tobacco Use Smoking Status *Q: Former Smoker Years of Tobacco use: 20 Used Tobacco, but Quit: Yes Month/Year Tobacco Last Used: 2009 Second Hand Smoke Exposure: Yes - Caffeine Use Caffeine Use: Reports: None - Alcohol Use Days Per Week of Alcohol Use: 2 Number of Drinks Per Day: 5 Total Drinks Per Week: 10 - Recreational Drug Use Recreational Drug Use: No H&P Review of Systems - Review of Systems: Review Of Systems: See Below General: Reports: Fatigue HEENT: Reports: No Symptoms Pulmonary: Reports: No Symptoms Cardiovascular: Reports: No Symptoms Gastrointestinal: Reports: Abdominal Pain, Decreased Appetite, Difficulty Swallowing, Nausea, Vomiting, Other (heartburn) Genitourinary: Reports: No Symptoms Musculoskeletal: Reports: No Symptoms Skin: Reports: No Symptoms Psychiatric: Reports: No Symptoms Neurological: Reports: No Symptoms Hematologic/Lymphatic: Reports: No Symptoms Immunologic: Reports: No Symptoms Exam - Exam Exam: See Below - Vital Signs Vital Signs: Last Vital Signs Temp 97.7 F 05/24/19 08:03 Pulse 68 05/24/19 08:03 Resp 18 05/24/19 08:03 BP 102/71 05/24/19 08:03 Pulse Ox 99 05/24/19 08:03 Weight: 182 lb - Exam Quality Assessment: DVT Prophylaxis General: Alert, Oriented, Cooperative HEENT: PERRLA, Conjunctiva Clear Neck: Supple, Trachea Midline Lungs: Clear to Auscultation, Normal Respiratory Effort Cardiovascular: Regular Rate, Regular Rhythm GI/Abdominal Exam: Soft, Non-Tender (Female) Exam: Deferred Rectal (Female) Exam: Deferred Back Exam: Normal Inspection, Full Range of Motion Extremities: Normal Inspection, Normal Range of Motion, Non-Tender, No Pedal Edema Skin: Warm, Dry, Intact Neurological: Cranial Nerves Intact, Reflexes Equal Bilateral Neuro Extensive - Mental Status: Alert, Oriented x3, Normal Mood/Affect Neuro Extensive - Motor, Sensory, Reflexes: CN II-XII Intact, Normal Gait, Normal Reflexes Psychiatric: Alert, Normal Affect, Normal Mood - Patient Data Lab Results Last 24 hrs: Laboratory Results - last 24 hr 05/24/19 05/24/19 Range/Units 08:08 08:08 WBC 7.3 (4.5-11.0) K/uL RBC 4.53 (3.30-5.50) M/uL Hgb 13.7 (12.0-15.0) g/dL Hct 42.8 (36.0-48.0) % MCV 95 (80-98) fL MCH 30 (27-31) pg MCHC 32 (32-36) % Plt Count 148 L (150-400) K/uL Sodium 141 (140-148) mmol/L Potassium 3.5 L (3.6-5.2) mmol/L Chloride 105 (100-108) mmol/L Carbon Dioxide 29 (21-32) mmol/L Anion Gap 10.5 (5.0-14.0) mmol/L BUN 15 (7-18) mg/dL Creatinine 0.7 (0.6-1.0) mg/dL Est Cr Clr Drug Dosing 102.23 mL/min Estimated GFR (MDRD) > 60 (>60) Glucose 82 (74-106) mg/dL Calcium 8.6 (8.5-10.1) mg/dL Phosphorus 3.4 (2.5-4.9) mg/dL Magnesium 2.0 (1.8-2.4) mg/dL Ferritin 221 (8-388) ng/ml Total Bilirubin 0.4 (0.2-1.0) mg/dL AST 22 (15-37) U/L ALT 73 (12-78) U/L Alkaline Phosphatase 102 (46-116) U/L Total Protein 6.7 (6.4-8.2) g/dL Albumin 3.6 (3.4-5.0) g/dL Globulin 3.1 (2.3-3.5) g/dL Albumin/Globulin Ratio 1.2 (1.2-2.2) Vitamin B12 1406 H (193-986) pg/ml Folate 18.1 (8.6-58.9) ng/ml Result Diagrams: 05/24/19 08:08 05/24/19 08:08 Sepsis Event Note - Focused Exam Vital Signs: Vital Signs Temp Pulse Resp BP Pulse Ox 05/24/19 08:03 97.7 F 68 18 102/71 99 Date Exam was Performed: 05/24/19 Time Exam was Performed: 09:31 - Problem List (1) Superior mesenteric artery syndrome SNOMED Code(s): 161954435 ICD Code: K55.1 - CHRONIC VASCULAR DISORDERS OF INTESTINE Status: Acute Current Visit: Yes (2) Partial small bowel obstruction SNOMED Code(s): 125367513 ICD Code: K56.600 - PARTIAL INTESTINAL OBSTRUCTION, UNSPECIFIED TO CAUSE Status: Acute Current Visit: Yes Problem List Initiated/Reviewed/Updated: Yes Orders Last 24hrs: Active Orders 24 hr Category Date Time Status Dextrose 5%-Lactated Ringers 1,000 ml Med 05/24/19 08:15 Active IV ASDIRECTED Ketamine [Ketalar] Med 05/24/19 09:30 Active 34 mg IV ASDIRECTED Ketamine [Ketalar] 50 mg Med 05/24/19 09:30 Active Sodium Chloride 0.9% [Normal Saline] 49.5 ml IV ASDIRECTED Ropivacaine [Naropin 0.5%] 45 ml Med 05/24/19 09:30 Active dexAMETHasone [Dexamethasone] 8 mg EPINEPHrine [Adrenalin] 0.4 mg Sodium Chloride 0.9% [Normal Saline] 32.6 ml NERVRT ASDIRECTED Scopolamine [Transderm-Scop] Med 05/24/19 08:00 Active 1.5 mg TOP Q72H cefOXitin [Mefoxin] 2 gm Med 05/24/19 09:15 Active Sodium Chloride 0.9% [Normal Saline] 50 ml IV ONETIME Sequential Compression Device [OM.PC] Routine Oth 05/24/19 07:45 Ordered Medication Orders Ropivacaine 45 ml/Dexamethasone 8 mg/Epinephrine HCl 0.4 mg/ Sodium Chloride 32.6 ml 0 ml NERVRT ASDIRECTED ERICA Cefoxitin Sodium 2 gm/ Sodium (Chloride) 50 mls @ 100 mls/hr IV ONETIME ONE Stop: 05/24/19 09:44 Dextrose/Lactated Ringer's (Dextrose 5%-Lactated Ringers) 1,000 mls @ 100 mls/ hr IV ASDIRECTED [facility] Last Admin: 05/24/19 08:56 Dose: 100 mls/hr Ketamine HCl 50 mg/ Sodium (Chloride) 50 mls @ 20.27 mls/hr IV ASDIRECTED [facility] Ketamine HCl (Ketalar) 34 mg IV ASDIRECTED [facility] Scopolamine (Transderm-Scop) 1.5 mg TOP Q72H [facility] Stop: 05/26/19 10:00 Last Admin: 05/24/19 08:06 Dose: 1.5 mg Scheduled for Exploratory Laparotomy with Release of Small Bowel Obstruction and Release and Bypass of Superior Mesenteric Syndrome. - Mateus Adams MD After Preoperative Evaluation and discussion of possible risks and side effects patient wishes to proceed with surgical procedure. Patient Cleared for General Anesthesia Yesenia Joseph
[2019-05-24] MEDS ORDERED: Lactated Ringers 1,000 ML ONE (10:59)
[2019-05-24] MEDS ORDERED: diphenhydrAMINE 25 MG Cap PO PRN (12:32)
[2019-05-24] MEDS ORDERED: Ondansetron 4 MG/2 ML SDV IVPUSH PRN ×2 (12:32→13:56)
[2019-05-24] MEDS ORDERED: Naloxone 0.4 MG/ML SDV IVPUSH PRN (12:32)
[2019-05-24] MEDS ORDERED: diphenhydrAMINE 50 MG/ML SDV IVPUSH PRN ×2 (12:32→13:56)
[2019-05-24] MEDS ORDERED: Naloxone 0.4 MG/ML SDV IV PRN (12:34)
[2019-05-24] MEDS ORDERED: Metoclopramide 10 MG/2 ML SDV IVPUSH PRN (13:46)
[2019-05-24] MEDS ORDERED: Acetaminophen 500 MG Tab PO PRN (13:56)
[2019-05-24] MEDS ORDERED: Labetalol 20 MG/4 ML Syringe IVPUSH PRN (13:56)
[2019-05-24] MEDS ORDERED: hydrOXYzine HCL 100 MG/2 ML SDV IM PRN (13:56)
[2019-05-24] MEDS ORDERED: Cyclobenzaprine 10 MG Tab PO PRN (13:56)
[2019-05-24] MEDS: HYDROmorphone/Normal Saline 15 MG/30 ML PCA IV PRN (13:58)
[2019-05-24] MEDS: Dextrose 5%-Lactated Ringers 1,000 ML IV SCH (15:33)
[2019-05-24] MEDS: Acetaminophen 500 MG Tab PO SCH ×2 (15:37→23:02)
[2019-05-24] MEDS ORDERED: MVI, Adult with Vitamin K 10 ML, Thiamine 200 MG, Chromium/Copper/Mang/Selen/Zn 1 ML in... IV SCH ×4 (16:00)
[2019-05-24] MEDS ORDERED: Pantoprazole 40 MG Vial IVPUSH SCH (16:00)
[2019-05-24] MEDS: cefOXitin 2 GM in Sodium Chloride 0.9% 50 ML IV SCH ×2 (17:16→21:00)
[2019-05-24] MEDS: Heparin Sodium 5,000 Units/ML Vial SUBCUT SCH (20:51)
[2019-05-24] MEDS: Calcium Carbonate 500 MG Tab.Chew PO PRN ×2 (20:59→23:01)
[2019-05-25] MEDS: Dextrose 5%-Lactated Ringers 1,000 ML IV SCH ×3 (00:27→13:52)
[2019-05-25] MEDS: HYDROmorphone/Normal Saline 15 MG/30 ML PCA IV PRN (02:15)
[2019-05-25] MEDS: cefOXitin 2 GM in Sodium Chloride 0.9% 50 ML IV SCH ×2 (03:49→09:00)
[2019-05-25] MEDS ORDERED: Iopamidol 612 MG/ML 50 ML SDV PO STA (03:49)
[2019-05-25] MEDS ORDERED: Ondansetron 4 MG Tab.DIS PO PRN (07:16)
[2019-05-25] MEDS: Acetaminophen 500 MG Tab PO SCH ×3 (07:31→23:35)
[2019-05-25] MEDS: Heparin Sodium 5,000 Units/ML Vial SUBCUT SCH ×2 (07:32→20:17)
[2019-05-25] MEDS: Aspirin 325 MG Tab.EC PO SCH (08:49)
[2019-05-25] MEDS: Bisacodyl 5 MG Tab PO SCH ×2 (08:50→20:17)
[2019-05-25] MEDS: SCOPOLAMINE PATCH CHECK TOP SCH (08:50)
--- NOTE | 2019-05-25 09:15 | CR ---
UGI Limited HISTORY: Postbariatric surgery FINDINGS: Patient swallowed water-soluble contrast. Upright views of the abdomen show no evidence of extravasation or obstruction. IMPRESSION: Status post bariatric surgery No extravasation or obstruction seen
--- NOTE | 2019-05-25 09:33 | PN ---
DATE OF SERVICE: 05/25/2019 SUBJECTIVE: Augustina is postoperative day #1. Her upper GI was normal. Step 1 gastric bypass diet. Oral intake 420. Urine output via Diaz catheter is 1835. Pain has been controlled using the ELA TEACHER. REVIEW OF SYSTEMS: Remainder of review of systems negative for any pertinent positives and negatives. OBJECTIVE: GENERAL: Augustina Duncan is a 48-year-old female. VITAL SIGNS: TPR at 0724; 97, 54, 16, blood pressure 96/49. HEENT: Negative. NECK: Supple. HEART: Regular rate and rhythm. LUNGS: Clear. ABDOMEN: Dressings dry and intact. Abdominal binder is on. EXTREMITIES: Without peripheral edema. ASSESSMENT: Exploratory laparotomy with: 1. Small bowel resection. 2. Secondary enterostomy to restore Ramiro-en-Y small bowel anatomy. 3. Formation of Ramiro-en-Y duodenojejunostomy. 4. Release of superior duodenal bands. 5. Placement of Interceed mesh. POSTOPERATIVE DIAGNOSES: 1. Partial small-bowel obstruction at jejunojejunostomy. 2. Superior mesenteric syndrome. DATE OF SURGERY: 05/24/2019. SURGEON: Mateus Adams MD. PLAN: 1. Discontinue Diaz catheter. 2. Step 2 gastric bypass diet without cereal. 3. May shower. 4. Decrease IV of D5LR to 100 mL per hour. 5. Senna Plus 2 b.i.d. scheduled. 6. Zofran ODT 4 mg every 4 hours p.r.n. nausea. 7. Good pulmonary toilet. Use IS as directed. 8. Ambulate 6 times a day, distance and time as tolerated. 9. We will evaluate p.r.n. or in a.m. Yesenia Sood PA-C /[id number]
[2019-05-25] MEDS ORDERED: MVI, Adult with Vitamin K 10 ML, Thiamine 200 MG, Chromium/Copper/Mang/Selen/Zn 1 ML in... IV SCH ×4 (16:00)
[2019-05-25] MEDS: Pantoprazole 40 MG Tab.CR PO SCH (16:29)
[2019-05-26] MEDS: Dextrose 5%-Lactated Ringers 1,000 ML IV SCH (02:28)
[2019-05-26] MEDS: HYDROmorphone/Normal Saline 15 MG/30 ML PCA IV PRN (05:46)
[2019-05-26] MEDS: Acetaminophen 500 MG Tab PO SCH ×3 (07:27→23:21)
[2019-05-26] MEDS: Heparin Sodium 5,000 Units/ML Vial SUBCUT SCH ×2 (07:27→20:44)
--- NOTE | 2019-05-26 07:46 | PN ---
DATE OF SERVICE: 05/26/2019 SUBJECTIVE: Nisa has been up ambulating. Vital signs have been stable. Pain has been controlled. Oral intake 900. Urine output 2550. She is not passing flatus yet. Has no other questions or concerns. OBJECTIVE: GENERAL: Augustina Duncan is a pleasant 48-year-old female. VITAL SIGNS: TPR at 02:30, 98; 67; 16; blood pressure 101/58. HEENT: Negative. NECK: Supple. HEART: Regular rate and rhythm. LUNGS: Clear. ABDOMEN: Aquacel dressing is on. There is some shadowing. Abdominal binder is on. EXTREMITIES: Without peripheral edema. ASSESSMENT: Exploratory laparotomy with: 1. Small bowel resection. 2. Secondary enterostomy to restore Ramiro-en-Y small bowel anatomy. 3. Formation of Ramiro-en-Y duodenojejunostomy. 4. Release of superior duodenal bands. 5. Placement of Interceed mesh. POSTOPERATIVE DIAGNOSES: 1. Partial small bowel obstruction of the jejunojejunostomy. 2. Superior mesenteric syndrome. 3. Date of surgery: 05/24/2019. Surgeon: Mateus Adams MD. PLAN: 1. Discontinue Dilaudid STAFF NURSE MIDWIFE. 2. Discontinue telemetry and continuous pulse ox. 3. Dilaudid 2 mg 1 to 2 every 4 hours p.r.n. pain. 4. Continue to use incentive spirometer as directed and to ambulate. 5. Saline lock IV if oral intake greater than 1000. We will evaluate p.r.n. or in a.m. Yesenia Sood PA-C /[id number]
[2019-05-26] MEDS ORDERED: Cyanocobalamin (Vitamin B12) 1,000 MCG/ML SDV IM ONE (09:00)
[2019-05-26] MEDS: Aspirin 325 MG Tab.EC PO SCH (09:04)
[2019-05-26] MEDS: Bisacodyl 5 MG Tab PO SCH ×2 (09:04→20:44)
[2019-05-26] MEDS: SCOPOLAMINE PATCH CHECK TOP SCH (09:10)
[2019-05-26] MEDS: HYDROmorphone 2 MG Tab PO PRN ×3 (10:50→19:11)
[2019-05-26] MEDS: Pantoprazole 40 MG Tab.CR PO SCH (15:05)
[2019-05-27 07:20] VITALS: BP 114/60; PULSE 82
[2019-05-27] MEDS: Acetaminophen 500 MG Tab PO SCH (08:21)
[2019-05-27] MEDS: Aspirin 325 MG Tab.EC PO SCH (08:22)
[2019-05-27] MEDS: Heparin Sodium 5,000 Units/ML Vial SUBCUT SCH (08:22)
[2019-05-27] MEDS: Bisacodyl 5 MG Tab PO SCH (08:22)
--- NOTE | 2019-05-27 08:42 | DISCH ---
ADMISSION DIAGNOSES: 1. Dysphagia. 2. Heart burn. 3. Partial small bowel obstruction. 4. Superior mesenteric artery syndrome. 5. Status post partial gastrectomy. 6. B12 deficiency. 7. Vitamin D deficiency. 8. Vitamin B1 deficiency. 9. PFO. 10.History of cerebrovascular accident. 11.Transient ischemic attack. 12.Migraine headaches. DISCHARGE DIAGNOSES: Exploratory laparotomy with: 1. Small bowel resection. 2. Secondary enterostomy to restore Ramiro-en-Y small bowel anatomy. 3. Formation of Ramiro-en-Y duodenojejunostomy. 4. Release of superior duodenal bands. 5. Placement of Interceed mesh. POSTOPERATIVE DIAGNOSES: 1. Partial small bowel obstruction of the jejunojejunostomy. 2. Superior mesenteric syndrome. 3. Date of surgery: 05/24/2019. Surgeon: Mateus Adams MD. HISTORY: Augustina Duncan is a 48-year-old female with dysphagia, nausea, and vomiting. After her EGD, a CT scan was obtained and showed partial small bowel obstruction with superior mesenteric syndrome. After preoperative evaluation and discussion of possible risks and possible complications, she wished to proceed with surgical procedure. HOSPITAL COURSE: Augustina had her surgery on 05/24/2019. She had no operative complications. On postoperative day #1, her upper GI was normal. She was advanced to a step 2 gastric bypass diet without cereal. Diaz was discontinued. IV rate was decreased to 100 mL per hour and she was started on bowel stimulation. On postoperative day #2, [employer]ACTICE PSYCHIATRIC NURSE was discontinued. Oral pain medication was started. She was up, ambulating, and she did have a bowel movement. Activity was good. Vital signs were stable. Postop day #3, on 05/27/2019, able to be discharged to home with no complications. PHYSICAL EXAMINATION: GENERAL: Augustina Duncan is a 48-year-old female. VITAL SIGNS: Height is 5 feet 9.69 inches, weight is 182 pounds. TPR at 0700, 97.1; 82; 16; blood pressure 114/60. HEENT: Negative. NECK: Supple. HEART: Regular rate and rhythm. LUNGS: Clear. ABDOMEN: Abdominal binder has been on. Aquacel dressing is dry and intact. EXTREMITIES: Without peripheral edema. DISPOSITION: Discharged to home. CONDITION: Stable and improving. FOLLOWUP: Appointment with Yesenia Sood PA-C at [facility] on 06/02/2019 at 9 a.m. HOME MEDICATIONS: 1. Dilaudid 2 mg every 6 hours p.r.n. pain #28. 2. Tylenol 1000 mg oral q.8 hours p.r.n. pain. 3. Aspirin 325 mg oral daily. 4. B complex 1 daily. 5. Calcium citrate 1 twice daily. 6. Vitamin B12 1000 mcg sublingual daily. 7. Pepcid 20 mg oral twice daily. 8. Multivitamin 1 tablet twice daily. DIET: Step 2 gastric bypass with no cereal until 05/31/2019, then may advance to a step 3 diet after calling the clinic to let us know how you are doing on step 2 diet. Drink 8 to 10 glasses of water a day. ACTIVITY: No lifting greater than 10 pounds for 6 weeks. Other activity: Walk at least 6 times daily inside your home. Driving: Do not drive for 1 week and while on narcotic pain medication. Shower/bathing: May shower. DISCHARGE INSTRUCTIONS: Notify provider if any fever, increased pain, nausea, or vomiting. Keep site clean and dry. Wound incision care. Take off Aquacel dressing on 05/31/2019. Wear abdominal binder for 6 weeks and then as tolerated. SPECIAL INSTRUCTIONS: 1. Use incentive spirometer 10 times every hour while awake for 1 week. 2. Call clinic on 05/31/2019, to let us know how you are doing on step 2 gastric bypass diet before advancing to step 3.
--- NOTE | 2019-05-31 11:33 | OR ---
DATE OF PROCEDURE: 05/24/2019 SURGEON: Mateus Adams MD PREOPERATIVE DIAGNOSES: 1. Superior mesenteric artery syndrome. 2. Partial small bowel obstruction. POSTOPERATIVE DIAGNOSES: 1. Superior mesenteric artery syndrome. 2. Partial small bowel obstruction at jejunojejunostomy. OPERATIVE PROCEDURES: Exploratory laparotomy with: 1. Small bowel resection (24159). 2. Secondary enteroenterostomy to restore Ramiro-en-Y small bowel anatomy (65191). 3. Formation of Ramiro-en-Y duodenojejunostomy (88094). 4. Release of suspensory duodenal bands (30641). 5. Placement of Interceed mesh to limit recurrent adhesion formation (47547). ANESTHESIA: General. AUTOMATIC PACKER OPERATOR: Yesenia Sood PA-C. INDICATION FOR PROCEDURE: The patient presents with postprandial abdominal pain. Recent endoscopy showed the patient to have minimal stricturing at her gastrojejunostomy but had bile coming back up and through the Ramiro limb, indicative of probable partial small bowel obstruction. Subsequent CAT scan showed also findings suggestive of a superior mesenteric artery syndrome with the descending duodenum being quite dilated and there being an obvious constriction of the duodenum between the aorta and superior mesenteric artery on the CT scan. This likely would also be contributing to the patient's postprandial abdominal discomfort. The plan is to proceed with exploratory laparotomy and identification and correction of the area of partial small bowel obstruction, along with formation of the Ramiro- en-Y duodenojejunostomy to facilitate drainage of the biliopancreatic secretions in a route not requiring being passed underneath the constricting point between the aorta and superior mesenteric artery. We will also release the suspensory duodenal bands, which are likely contributing to this as well, which drops the duodenum somewhat inferiorly and out of an area which is not as tight between the superior mesenteric artery and aorta. Potential risks of the procedure including bleeding, infection, injury to underlying viscera, leaks from various possible GI tract closures were all discussed, and the patient wishes to proceed. DETAILS OF PROCEDURE: The patient was taken to the operating room and after general endotracheal anesthesia was induced, a Diaz catheter was inserted, and the abdomen prepped and draped. Upper midline incision was made from the xiphoid to the umbilicus and carried down through the full-thickness abdominal wall. Upon entering the peritoneal cavity, general exploration was undertaken. As expected, the easily visualized second portion of the duodenum was quite distended and somewhat edematous. Visualizing the remainder the small bowel, it appeared that the point of obstruction was likely at the point where the jejunojejunostomy emptied into the common limb, as this had been chronically angulated by some adhesions. Upon release of those adhesions, that appeared to be still somewhat angulated, and this was tending to force the biliopancreatic secretions from the biliopancreatic limb in a proximal direction, causing the Ramiro limb to be flooded with those secretions. At this point, decision was made to resect the jejunojejunostomy and then use what had been the proximal-most common limb as a separate Ramiro limb coming from that anastomosis up to the junction of the second and third portions of the duodenum. Initially, dissection of the second and third portions of the duodenum was initiated with combination of cautery and blunt dissection, and this then allowed dissection in the area underneath the superior mesenteric artery. The suspending duodenal bands in that area including the ligament Treitz were divided and the duodenum mobilized inferiorly after division of those bands. At this point, the 3 components of the jejunojejunostomy were divided with NAVEED margie as was the underlying mesentery and that specimen delivered from the field. GI tract continuity was initiated with anastomosis between the Ramiro limb and the divided biliopancreatic limb. This was a [id number] enteroenterostomy with internal firing of the Endo-NAVEED 60 mm stapler. The common opening was closed transversely with the same stapler. Angles of anastomosis were reinforced with some 3-0 Vicryl stitch and the mesenteric defect closed with a 2-0 silk stitch. What had been the proximal-most common limb was then mobilized up through an antecolic approach, more or less curving around the lateral aspect of the hepatic flexure of the colon. This came up easily to the area of the exposed second and third portions of the duodenum. A sobj-my-bvab anastomosis using 60 mm internal firing and the common opening closed transversely with the purple load was then accomplished, thus creating the Ramiro-en-Y duodenojejunostomy. The GI tract continuity was then fully established with a secondary anastomosis between the bowel roughly 20 cm distal to the duodenojejunostomy to the common limb more or less adjacent to the anastomosis. This would facilitate all of the bilious secretions, both those coming through the Ramiro-en-Y duodenojejunostomy and those passing through the biliopancreatic limb into direct drainage into the common limb, and did not have any sense of force proximally in terms of the biliopancreatic limb. This anastomosis was accomplished with internal firing of the Endo NAVEED 60 mm stapler. Common opening was closed transversely with NAVEED stapler as well, and the angles of anastomosis and mesenteric defect were approximated with some 3-0 Vicryl stitch and mesenteric defect with 2-0 silk stitch. This last anastomosis was close enough to first jejunostomy that it was felt that the ingested food going through the Ramiro limb would easily pass from there into the anastomosis of the biliopancreatic limb and thereafter through the secondary anastomosis. The area of dissection was then inspected. No further problems were noted. The abdomen was irrigated with meropenem-containing saline solution. Interceed mesh was then placed across the area of the incision and from there down toward the pelvis to limit recurrent adhesion formation by displacing those surfaces from the underlying viscera. Midline fascia was then approximated with a #2 Vicryl stitch, the subcutaneous tissue with 2 layers of 3-0 and 4-0 Vicryl stitch deep, and the skin with margie. Bilateral transversus abdominis plane blocks had been placed, and the incision was anesthetized with 0.5% Marcaine mixed with lidocaine and the patient taken to the recovery room in satisfactory condition. Physician assistant vice president, Yesenia Sood, played an essential role in assisting in this case, helping to position the patient, retract structures as needed, as well as cutting and tying sutures, as well as placing margie. Her presence improved patient safety and decreased operative time. Mateus Adams MD /[id number]
== END 2019-05-27 10:46 | disposition home or self-care (01) | DRG 330 ==
LOC: JP.MS 07:45 → JP.SDS 07:45 → JP.MS 07:46 → EDSTATUS 09:15 → JP.MS 12:35
PROVIDERS: ADMIT Surgery; ATTEND Surgery
PROC: 0DB80ZZ Excision of Small Intestine, Open Approach (ICD-10-PCS; principal; 2019-05-24)
PROC: 0D190ZA Bypass Duodenum to Jejunum, Open Approach (ICD-10-PCS; 2019-05-24)
PROC: 0DN90ZZ Release Duodenum, Open Approach (ICD-10-PCS; 2019-05-24)
PROC: 3E0M05Z Introduction of Adhesion Barrier into Peritoneal Cavity, Open Approach (ICD-10-PCS; 2019-05-24)
DX: K95.89 Other complications of other bariatric procedure (principal); K56.600 Partial intestinal obstruction, unspecified as to cause; K55.1 Chronic vascular disorders of intestine; Q21.1 Atrial septal defect; E55.9 Vitamin D deficiency, unspecified; E53.8 Deficiency of other specified B group vitamins; K21.9 Gastro-esophageal reflux disease without esophagitis; E66.9 Obesity, unspecified; Z86.73 Personal history of transient ischemic attack (TIA), and cerebral infarction without residual deficits; Z88.8 Allergy status to other drugs, medicaments and biological substances; Z79.82 Long term (current) use of aspirin; Z79.899 Other long term (current) drug therapy; Z87.891 Personal history of nicotine dependence
CPT/HCPCS: 36415; 74240; 74240-26; 80053; 82607; 82728; 82746; 83735; 84100; 85027; 88307; A9270-GY; C9113; J0171; J0330; J0694; J1100; J1170; J1644; J2185; J2405; J2704; J2710; J2765; J2795; J3010; J3411; J3420; J3490; J7050; J7120; J7121; Q9967

== ENCOUNTER 2020-11-05 08:50 | Emergency (ER) | payer MEDICAID ==
[2020-11-05 09:43] VITALS: BP 108/66; PULSE 89
[2020-11-05] MEDS ORDERED: Bacitracin Oint 1 GM U/D Packet TOP ONE (09:43)
[2020-11-05] MEDS ORDERED: Diphtheria,Pertussis(Acell),Tetanus Vaccine 0.5 ML Syringe IM ONE (09:46)
--- NOTE | 2020-11-05 09:49 | EDM.PDOC ---
ED HPI GENERAL MEDICAL PROBLEM - General Chief Complaint: Laceration Stated Complaint: FELL AND HIT HEAD Time Seen by Provider: 11/05/20 09:35 Source of Information: Reports: Patient, Old Records History Limitations: Reports: No Limitations - History of Present Illness INITIAL COMMENTS - FREE TEXT/NARRATIVE: 50 yo female got knocked down by a large dog about 2130h last night and hit the back of her head incurring a scalp laceration. There was no LOC, LARSEN, or nausea. Has a mildly stiff neck and a mildly sore buttocks this AM. Last tetanus was in '14. Onset: Sudden Onset Date: 11/04/20 Onset Time: 21:30 Duration: Hour(s): Location: Reports: Head Quality: Reports: Ache Severity: Mild Improves with: Reports: None Worsens with: Reports: None Context: Reports: Trauma Associated Symptoms: Reports: No Other Symptoms Treatments GAUGE AND INSTRUMENT INSPECTOR: Reports: Other (see below) (none) back of head Pain Score (Numeric/FACES): 3 - Related Data Allergies Allergy/AdvReac Type Severity Reaction Status Date / Time brompheniramine Allergy Rash Verified 11/05/20 09:05 phenylephrine Allergy Rash Verified 11/05/20 09:05 Home Meds: Home Meds L.acidoph,Paracasei, B.lactis [Probiotic] 1 tab PO DAILY 11/05/20 [History] Past Medical History HEENT History: Reports: Impaired Vision Other HEENT History: wears glasses Cardiovascular History: Reports: Other (See Below) Other Cardiovascular History: PFO Respiratory History: Reports: None Gastrointestinal History: Reports: Colon Polyp, GERD, Hiatal Hernia Genitourinary History: Reports: None [employer] History: Reports: Musculoskeletal History: Reports: Arthritis Other Musculoskeletal History: R elbow pain Neurological History: Reports: CVA, Migraines, TIA Psychiatric History: Reports: None Endocrine/Metabolic History: Reports: Obesity/BMI 30+ Hematologic History: Reports: B12 Deficiency, Blood Transfusion(s) Immunologic History: Reports: None Oncologic (Cancer) History: Reports: None Dermatologic History: Reports: None - Infectious Disease History Infectious Disease History: Reports: Herpes - Past Surgical History HEENT Surgical History: Reports: None Cardiovascular Surgical History: Reports: Other (See Below) Other Cardiovascular Surgeries/Procedures: cribaform placed 2009. Respiratory Surgical History: Reports: None GI Surgical History: Reports: Bariatric Procedure, Cholecystectomy, Colonoscopy, EGD Other GI Surgeries/Procedures: MAY 07, 2018 [facility] Female Surgical History: Reports: Breast Biopsy, D&C, Hysterectomy, Oophorectomy Other Female Surgeries/Procedures: still has one ovary Endocrine Surgical History: Reports: None Neurological Surgical History: Reports: None Musculoskeletal Surgical History: Reports: None Oncologic Surgical History: Reports: Biopsy of Breast Dermatological Surgical History: Reports: None Social & Family History - Family History Family Medical History: No Pertinent Family History Cardiac: Reports: Heart Failure Musculoskeletal: Reports: Arthritis Neurological: Reports: Alzheimers Disease Endocrine/Metabolic: Reports: Diabetes, Type I Oncologic: Reports: Breast, Colon - Tobacco Use Tobacco Use Status *Q: Never Tobacco User - Caffeine Use Caffeine Use: Reports: None - Recreational Drug Use Recreational Drug Use: No ED ROS GENERAL - Review of Systems Review Of Systems: See Below Constitutional: Reports: No Symptoms HEENT: Reports: No Symptoms Respiratory: Reports: No Symptoms Cardiovascular: Reports: No Symptoms GI/Abdominal: Reports: No Symptoms : Reports: No Symptoms Musculoskeletal: Reports: Neck Pain (mild stiffness) Skin: Reports: Wound (occiput lac) Neurological: Denies: Dizziness, Headache, Paresthesia, Trouble Speaking, Difficulty Walking Psychiatric: Reports: No Symptoms ED EXAM, SKIN/RASH Exam: See Below Exam Limited By: No Limitations General Appearance: Alert, WD/WN, No Apparent Distress Eye Exam: Bilateral Eye: EOMI, Normal Inspection, PERRL Ears: Normal External Exam, Normal Canal, Hearing Grossly Normal, Normal TMs Nose: Normal Inspection, No Blood Throat/Mouth: Normal Inspection, Normal Lips, Normal Oropharynx, Normal Voice, No Airway Compromise Head: Atraumatic, Normocephalic Neck: Normal Inspection, Supple, Full Range of Motion Respiratory/Chest: No Respiratory Distress Cardiovascular: Regular Rate, Rhythm GI/Abdominal: Soft, Non-Tender Extremities: Normal Inspection, Normal Range of Motion, Non-Tender, No Pedal Edema Neurological: Alert, Oriented, CN II-XII Intact, Normal Cognition, No Motor/Sensory Deficits Psychiatric: Normal Affect, Normal Mood Skin: Warm, Dry, Normal Color, No Rash, Wound/Incision (2 cm occiput lac, no active bleeding. Fairly good wound edge approx) Location, Skin: Head Characteristics: Linear Associated features: Tenderness. No: Warmth, Swelling, Induration, Lymphangitis Course - Vital Signs Last Recorded V/S: Last Vital Signs Temp 36.4 C 11/05/20 09:42 Pulse 89 11/05/20 09:42 Resp 12 11/05/20 09:42 BP 108/66 11/05/20 09:42 Pulse Ox 95 11/05/20 09:42 - Orders/Labs/Meds Orders: Active Orders 24 hr Category Date Time Status Bacitracin [Bacitracin Oint 1 GM] Med 11/05/20 09:43 Once 1 dose TOP ONETIME ONE Departure - Departure Time of Disposition: 10:00 Disposition: Home, Self-Care 01 Condition: Good Clinical Impression: Occipital scalp laceration Qualifiers: Encounter type: initial encounter Qualified Code(s): S01.01XA - Laceration without foreign body of scalp, initial encounter Scalp contusion Qualifiers: Encounter type: initial encounter Qualified Code(s): S00.03XA - Contusion of scalp, initial encounter - Discharge Information *PRESCRIPTION DRUG MONITORING PROGRAM REVIEWED*: Not Applicable *COPY OF PRESCRIPTION DRUG MONITORING REPORT IN PATIENT DOMINICK: Not Applicable Instructions: Laceration Care, Adult, [id number] Referrals: PCP,None [Primary Care Provider] - Additional Instructions: Clean wound with baby shampoo twice daily. Dry. Apply antibiotic ointment. Use acetaminophen or ibuprofen as needed for pain relief. Return for signs of infection. Sepsis Event Note (ED) - Evaluation Sepsis Screening Result: No Definite Risk - Focused Exam Vital Signs: Vital Signs Temp Pulse Resp BP Pulse Ox 11/05/20 09:42 36.4 C 89 12 108/66 95 - My Orders Last 24 Hours: My Active Orders 11/05/20 09:43 Bacitracin [Bacitracin Oint 1 GM] 1 dose TOP ONETIME ONE - Assessment/Plan Last 24 Hours: My Active Orders 11/05/20 09:43 Bacitracin [Bacitracin Oint 1 GM] 1 dose TOP ONETIME ONE
== END 2020-11-05 10:13 | disposition home or self-care (01) ==
LOC: JP.ED 08:50
DX: S01.01XA Laceration without foreign body of scalp, initial encounter (principal); E66.9 Obesity, unspecified; Z68.26 Body mass index [BMI] 26.0-26.9, adult; Z23 Encounter for immunization; Z88.8 Allergy status to other drugs, medicaments and biological substances; W01.0XXA Fall on same level from slipping, tripping and stumbling without subsequent striking against object, initial encounter
CPT/HCPCS: 90471; 90715; 99282

== ENCOUNTER 2024-01-28 07:21 | Day surgery (SDC) | payer MEDICAID ==
[~2024-01-28 07:21] MED LIST changes: +Bupivacaine 0.25%/EPINEPHrine 1:200,000 30 ML SDV ONE; -Bupivacaine 0.5% 50 ML MDV ONE; -Lidocaine 1% with EPINEPHrine 1:100,000 50 ML MDV ONE; -Meropenem 500 MG SDV ONE
[2024-01-28] MEDS ORDERED: fentaNYL 250 MCG/5 ML SDV ONE (07:24)
[2024-01-28] MEDS ORDERED: Rocuronium 50 MG/5 ML Vial ONE (07:25)
[2024-01-28] MEDS ORDERED: Ondansetron 4 MG/2 ML SDV ONE (07:25)
[2024-01-28] MEDS ORDERED: Propofol 200 MG/20 ML SDV ONE (07:25)
[2024-01-28] MEDS ORDERED: Succinylcholine 200 MG/10 ML MDV ONE (07:25)
[2024-01-28] MEDS ORDERED: Glycopyrrolate 0.2 MG/ML 5 ML MDV ONE (07:25)
[2024-01-28] MEDS ORDERED: Neostigmine Methylsulfate 10 MG/10 ML MDV ONE (07:25)
[2024-01-28] MEDS ORDERED: Dexamethasone 4 MG/ML SDV ONE (07:25)
[2024-01-28 07:50] LABS: BASOPHILS PERCENT AUTO 0.4 % (0.1-1.3); EOSINOPHILS ABSOLUTE AUTO 0.09 K/uL (0.00-0.40); EOSINOPHILS PERCENT AUTO 1.9 % (0.0-5.4); HEMOGLOBIN 12.5 g/dL (11.2-15.5); IMMATURE GRAN PERCENT AUTO 0.4 % (0.0-0.7); LYMPHOCYTES ABSOLUTE AUTO 1.41 K/uL (0.8-3.3); LYMPHOCYTES PERCENT AUTO 29.8 % (11.4-47.7); MEAN CORPUSCULAR HEMOGLOBIN 30.8 pg (31.6-35.5); MEAN CORPUSCULAR HGB CONC 33.8 g/dL (31.6-35.5); MEAN CORPUSCULAR VOLUME 91.1 fL (81.4-99.0); MONOCYTES ABSOLUTE AUTO 0.45 K/uL (0.20-0.90); MONOCYTES PERCENT AUTO 9.5 % (3.3-12.6); NEUTROPHILS ABSOLUTE AUTO 2.74 K/uL (1.0-7.6); PLATELET COUNT,PLT 141 K/uL (130-375); RED BLOOD CELL COUNT 4.06 M/uL (3.77-5.24); WHITE BLOOD CELL COUNT,WBC 4.7 K/uL (3.2-11.0)
[2024-01-28 08:01] LABS: BASOPHILS ABSOLUTE AUTO 0.02 K/uL (0.00-0.10); IMMATURE GRAN ABSOLUTE AUTO 0.02 K/uL (0.00-0.23)
[2024-01-28 08:06] LABS: CALCIUM 9.6 mg/dL (8.5-10.1); CREATININE 0.7 mg/dL (0.6-1.0); EST CRCL DRUG DOSING (CG) 98.2 mL/min; POTASSIUM,K 4.2 mmol/L (3.6-5.2)
[2024-01-28] MEDS ORDERED: Lidocaine 1% 2 ML ONE (08:14)
[2024-01-28] MEDS: Nozin Nasal Sanitizer NASBOTH ONE (08:19)
[2024-01-28] MEDS: Lactated Ringers 1,000 ML IV SCH (08:20)
[2024-01-28] MEDS ORDERED: Midazolam 1 MG/ML 2 ML SDV ONE (08:55)
[2024-01-28] MEDS: ceFAZolin 1 GM in Premix Bag 1 BAG IV ONE (08:55)
[2024-01-28] MEDS: Bupivacaine 0.5% 30 ML SDV ONE (09:30)
[2024-01-28] MEDS: Acetaminophen/HYDROcodone 325-5 MG Tab PO PRN (10:58)
[2024-01-28 11:26] VITALS: BP 99/56; PULSE 74
== END 2024-01-28 12:10 | disposition home or self-care (01) ==
LOC: JP.SDS 07:21
PROVIDERS: ATTEND Specialist
DX: M77.11 Lateral epicondylitis, right elbow (principal); Z88.8 Allergy status to other drugs, medicaments and biological substances
CPT/HCPCS: 01712; 24357; 36415; 80048; 85025; A9270; J0665; J0689; J1100; J2250; J2405; J2704; J3010; J7120; J0330; J1596; J2710; J3490